=== PATIENT | female | born 1985 | race Caucasian/White ===

== ENCOUNTER → 2019-06-16 08:40 | Outpatient (BNVA) | payer MEDICAID, SELFPAY | PROVIDERS: PCP Family Medicine; Visit Provider Obstetrics & Gynecology | DX: N89.8 Other specified noninflammatory disorders of vagina (principal); R10.2 Pelvic and perineal pain; N93.0 Postcoital and contact bleeding; B97.7 Papillomavirus as the cause of diseases classified elsewhere; R87.613 High grade squamous intraepithelial lesion on cytologic smear of cervix (HGSIL); N93.9 Abnormal uterine and vaginal bleeding, unspecified | CPT/HCPCS: 83001; 84146; 84443; 84703; 87491; 87591; 87661 ==

== ENCOUNTER → 2019-06-19 15:18 | Outpatient (BNVA) | payer MEDICAID, SELFPAY | PROVIDERS: PCP Family Medicine; Visit Provider Obstetrics & Gynecology | DX: D25.0 Submucous leiomyoma of uterus (principal); N93.9 Abnormal uterine and vaginal bleeding, unspecified; N93.0 Postcoital and contact bleeding; R10.2 Pelvic and perineal pain; B97.7 Papillomavirus as the cause of diseases classified elsewhere; R87.613 High grade squamous intraepithelial lesion on cytologic smear of cervix (HGSIL) | CPT/HCPCS: 76830 ==

== ENCOUNTER → 2019-07-07 08:08 | Outpatient (BNVA) | payer MEDICAID, SELFPAY | PROVIDERS: PCP Family Medicine; Visit Provider Obstetrics & Gynecology | DX: R87.613 High grade squamous intraepithelial lesion on cytologic smear of cervix (HGSIL) (principal) | CPT/HCPCS: 88305 ==

== ENCOUNTER 2019-09-13 07:10 | Day surgery (SDC) | payer MEDICAID, SELFPAY ==
[2019-09-11 12:54] VITALS: BMI 35.9
[2019-09-13 07:28] VITALS: BP 132/88; PULSE 97; RESP 18; TEMP 36.7; O2SAT 96
[2019-09-13] MEDS: sodium chloride 0.9% 1,000 ML 30 ML IV (07:34)
[2019-09-13 07:38] LABS: OR HCG Qualitative Urine Negative (Negative)
[2019-09-13 07:41] LABS: Basophils # 0.1 10^3/uL (0.0-0.1); Basophils % 0.6 %; Eosinophils # 0.5 10^3/uL (0.0-0.8); Eosinophils % 5.7 %; Hematocrit 42.5 % (37.0-47.0); Hemoglobin 13.8 g/dL (11.5-15.3); Mean Corpuscular HGB Conc 32.5 g/dL (30.0-36.0); Mean Corpuscular Hemoglobin 28.7 pg (28.0-34.0); Mean Corpuscular Volume 88.4 fL (81-99); Monocytes # 0.6 10^3/uL (0.2-0.9); Monocytes % 7.8 %; Neutrophils # 4.8 10^3/uL (1.8-7.7); Neutrophils % 60.6 %; Nucleated Red Blood Cells % 0 %; Platelet Count 261 10^3/cmm (130-400); Red Blood Count 4.81 10^6/uL (4.1-5.3); Red Cell Distribution Width 12.3 % (12.1-15.1); White Blood Count 7.9 10^3/uL (4.0-10.0)
[2019-09-13 07:56] LABS: Blood Urea Nitrogen 16 mg/dL (6-20); Calcium 9.5 mg/dL (8.5-10.5); Carbon Dioxide 22 mmol/L (22-29); Chloride 104 mmol/L (98-107); Glomerular Filtration Rate 82.6 mL/min (90-130); Glucose 88 mg/dL (65-115); Osmolality Calculated 276 mOsm/kg (285-295); Sodium 135 mmol/L (136-145)
--- NOTE | 2019-09-13 08:07 | W.PM.OPSUD ---
Surgery/Procedure H&P Update DATE OF PROCEDURE: September 13, 2019 DATE H&P PERFORMED: 09/11/19 H&P UPDATE INFORMATION: I have reviewed H&P completed within last 30 days and I have examined patient prior to procedure PREOP DIAGNOSIS: Abnormal Pap smear, abnormal colposcopy ABDULAZIZ-2?3 PLANNED PROCEDURE: Operation Date: 09/13/19 08:05 Proposed Procedures p Cold Knife Cone Biopsy 20543/D06.9(Not Applicable) - Tyson Wiseman MD
--- NOTE | 2019-09-13 08:10 | ANES.PREANE2 ---
Pre-Anesthetic Assessment Pre-Anesthetic Assessment: Height/Weight: Height 1.78 m Weight 113.398 kg Temp Pulse Resp BP Pulse Ox 98.1 F 97 18 132/88 96 09/13/19 07:28 09/13/19 07:28 09/13/19 07:28 09/13/19 07:28 09/13/19 07:28 Preop Diagnosis: Abnormal Pap smear, abnormal colposcopy ABDULAZIZ-2?3 Proposed Procedure: Operation Date: 09/13/19 08:05 Proposed Procedures p Cold Knife Cone Biopsy 44670/D06.9(Not Applicable) - Tyson Wiseman MD Familial anesthetic complications: denies Was Beta Nathanael taken within 24 hours: N/A Last intake: Intake Last Liquid Date 09/12/19 Last Liquid Time 23:30 Last Solid Date 09/12/19 Last Solid Time 19:30 Social: Social History: No alcohol and No tobacco Exam: Pre-Anes Outpt Exam: alert, oriented x 3, clear to auscultation bilaterally and regular rate & rhythm Airway: Submandibular: WNL Cervical ROM: WNL MP: 2 History/ROS: No significant history except as noted Pulmonary: Pulmonary: None reported CV/HEM: CV/HEM: None reported : : None reported Hepatic: Hepatic: None reported GI: GI: None reported Metabolic: Metabolic: None reported Musc/skel: Musc/skel: None reported Neuropsych: Neuropsych: None reported Anesthetic Plan: ASA status: 1 Anesthesia: Anesthesia Evaluation and MAC Risk of > 500 ml blood loss (7ml/kg in children): No Meds/Allergies Current Medications: Current Medications Generic Name Dose Route Start Last Admin Trade Name Freq PRN Reason Stop Dose Admin Sodium Chloride 1,000 mls @ 30 ml s/hr 09/13/19 07:15 09/13/19 07:34 Sodium Chloride 0.9% IV 09/14/19 07:14 30 mls/hr .Q24H MILLIE Administration PFSH Anesthesia PFSH: Medical History HGSIL (high grade squamous intraepithelial lesion) on Pap smear of 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 Family History Family/Other Ovarian cancer paternal aunt Social History (Updated 09/11/19 @ 08:18 by Selene Ortiz RN) Smoking and tobacco status: never smoked Alcohol intake: never Female Reproductive History: Date of last menstrual period: 08/14/19 Data Anesthesia CBC & Chem 7: 09/13/19 07:20 09/13/19 07:20 Other Labs: Laboratory Results - last 48 hr 09/13/19 09/13/19 09/13/19 07:11 07:20 07:20 WBC 7.9 RBC 4.81 Hgb 13.8 Hct 42.5 MCV 88.4 MCH 28.7 MCHC 32.5 RDW 12.3 Plt Count 261 MPV 10.0 Neut % (Auto) 60.6 Lymph % (Auto) 25.0 [place] % (Auto) 7.8 Eos % (Auto) 5.7 Baso % (Auto) 0.6 Neut # (Auto) 4.8 Lymph # (Auto) 2.0 [place] # (Auto) 0.6 Eos # (Auto) 0.5 Baso # (Auto) 0.1 Nucleated RBC % (auto) 0 Nucleated RBCs # 0.0 Sodium 135 L Potassium 4.0 Chloride 104 Carbon Dioxide 22 Anion Gap 13.0 BUN 16 Creatinine 0.8 GFR Calculation 82.6 L Glucose 88 Calculated Osmolality 276 L Calcium 9.5 Urine HCG, Qual Negative Cardiac Studies: No Data to Display
[2019-09-13 08:21] LABS: Urine Appearance SL Hazy (CLEAR); Urine Color Yellow (Yellow)
[2019-09-13 08:22] LABS: Add Urine Culture? No; Add Urine Microscopic? YES; Bacteria Urine 1+; Bilirubin Urine Neg (NEGATIVE); Blood Urine 3+ (Negative); Glucose Urine UA Norm (Normal); Ketones Urine Negative (Negative); Leukocyte Esterase Urine 1+ (Negative); Nitrate Urine Negative (Negative); Protein Urine Neg (Negative); Specific Gravity, Urine 1.015 (1.005-1.030); Urobilinogen Urine Norm (Negative); pH Urine 5 (5-7)
--- NOTE | 2019-09-13 09:24 | P.OP_ITS ---
Operative Report Date of procedure: September 13, 2019 Pre-op Diagnosis: Abnormal Pap smear, abnormal colposcopy ABDULAZIZ-2?3 Post-op diagnosis: same Post-op Findings: cervix ectropion Procedure Done: cervical cone biopsy via LEEP Specimens removed/disposition: cervical cone biopsy Surgeon: Tyson Wiseman Anesthesia: MAC Estimated blood loss (mL): 10 IV fluids (mL): 700 Complications: none Findings: eroded cervix Condition: stable Disposition: PACU Brief History: 33-year-old female with an abnormal Pap smear and colposcopy with ABDULAZIZ-3 Procedure: After informed consent, the patient was taken to the operating room w here general anesthesia was administered without difficulty. After administration of general anesthesia, the patient was placed in the dorsal lithotomy position, and prepped and draped in the usual sterile fashion. A time-out procedure was performed. The patient was examined under anesthesia and found to have a normal uterus with normal adnexa. A weighted speculum was then placed in the patient's vagina and the anterior lip of the cervix grasped with the singed toothed tenaculum A uterine sound was then advanced into the cervix to determine its direction and length. The decending cervical branchs of the uterine arteries were ligated with 2-0 Vicryl bilaterally at the level of the internal os. Attention was then turned to the cervix where it was stain with Lugol?s solution to hightlight the lesion. The paracervical area was then circumferentially infiltrated using Lidocaine 1% with epinephrine. A Big Fish Cone Biopsy Excisor was used to cut the cone biopsy in circular fashion and following removal of the specimen a suture was placed at the 12 o?clock location and fixed in formalin. Bleeding was minimal. The patient tolerated the procedure well, sponge, lap and needle counts were cor rect times two She was taken to the recovery room in good condition.
[2019-09-13 09:30] VITALS: BP 116/92; PULSE 100; RESP 18; TEMP 36.9; O2SAT 97
[2019-09-13 09:46] VITALS: BP 152/95; PULSE 100; RESP 18; O2SAT 98
== END 2019-09-13 10:13 | disposition home or self-care (01) ==
PROVIDERS: Visit Provider Obstetrics & Gynecology
PROC: 0UB97ZZ Excision of Uterus, Via Natural or Artificial Opening (ICD-10-PCS; CPT 57520; principal; 2019-09-13 08:00)
DX: D06.9 Carcinoma in situ of cervix, unspecified (principal)
CPT/HCPCS: 57522; 12345; 36415; 80048; 81001; 81025; 84703; 85025; 86850; 86900; 88307; J0690; J1885; J2001; J2250; J2704; J3010; J7030

== ENCOUNTER 2020-03-01 05:45 | Outpatient (RCR) | payer MEDICAID, SELFPAY ==
[2020-02-12 15:23] LABS: Basophils # 0.1 10^3/uL (0.0-0.1); Basophils % 0.5 %; Eosinophils # 0.5 10^3/uL (0.0-0.8); Eosinophils % 5.5 %; Hematocrit 38.5 % (37.0-47.0); Hemoglobin 11.8 g/dL (11.5-15.3); Lymphocytes # 1.9 10^3/uL (0.8-4.8); Lymphocytes % 20.8 %; Mean Corpuscular HGB Conc 30.6 g/dL (30.0-36.0); Mean Corpuscular Hemoglobin 26.1 pg (28.0-34.0); Mean Corpuscular Volume 85.2 fL (81-99); Monocytes # 0.5 10^3/uL (0.2-0.9); Monocytes % 5.9 %; Neutrophils # 6.13 10^3/uL (1.8-7.7); Nucleated Red Blood Cells % 0 %; Platelet Count 319 10^3/cmm (130-400); Red Blood Count 4.52 10^6/uL (4.1-5.3); Red Cell Distribution Width 15.1 % (12.1-15.1); White Blood Count 9.2 10^3/uL (4.0-10.0)
[2020-02-12 15:51] LABS: Alanine Aminotransferase 14 U/L (0-33); Albumin Level 4.4 g/dL (3.5-5.2); Alkaline Phosphatase 77 IU/L (35-105); Aspartate Amino Transferase 13 U/L (0-32); Blood Urea Nitrogen 15 mg/dL (6-20); Calcium 8.9 mg/dL (8.5-10.5); Carbon Dioxide 24 mmol/L (22-29); Chloride 105 mmol/L (98-107); Globulin 2.7 g/dL (1.3-4.6); Glomerular Filtration Rate 71.7 mL/min (90-130); Glucose 96 mg/dL (65-115); Osmolality Calculated 289 mOsm/kg (285-295); Sodium 139 mmol/L (136-145); Total Bilirubin 0.2 mg/dL (0.15-1.2); Total Protein 7.1 g/dL (6.6-8.7)
--- NOTE | 2020-02-13 | CT_ITS ---
Radiation Therapy Planning CT images; total exam DLP: 1409.67 mGy-cm MTDD
--- NOTE | 2020-02-14 17:59 | ONC CON_ITS ---
Dr. Berger New Patient Note Patient: Ashleigh Mitchell Unit #: [id number]: 1985 Dicatated By: Kaylyn Berger M.D.Date of Visit: Feb 12, 2020 Onc MED New Patient/Consult Referring Physician: Dr. Ben Ellison M.D. History of Present Illness: Ms. Ashleigh Mitchell, is a 34-year-old female who was found to have abnormal Pap smear in August 2019 and underwent conization by Dr. Wiseman which confirmed invasive cervical cancer, patient was referred to Dr. Ellison in [place] and underwent CT scan of chest abdomen pelvis on November 08, 2019 which showed solitary 2 mm fissural nodule in the left lung. Otherwise no abnormality 9 mm arterial phase hyperenhancing lesion in the liver lateral hepatic segment. 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 Patient says she has history of abnormal Pap smear in but was noncompliant as far as follow-up is concerned. She has history of anxiety and restlessness as well family history concern patient had a paternal aunt who had cervical cancer. Patient denies any complaints, no fever chills, no nausea or vomiting, no diarrhea constipation but somewhat restless and anxious, patient has been taking Ativan 0.5 mg every 8 hour but not helping her much recently. Otherwise no vaginal bleeding or discharge, no pelvic pain,Patient denies smoking but occasional alcohol use. Past Medical History: Ms. Mitchell's medical history is unremarkable. Past Surgical History: Ms. Basss surgical/procedural history consists of colposcopy, hysterectomy/bilateral salpingectomy-oophorectomy, and tubal ligation in 2006. Medications: ALPRAZolam 1 Tablet (of 0.5 mg) Tablet Oral t.i.d. Allergies: No Known Allergies. Social History: Ms. Mitchell is single. Ms. Mitchell has never smoked. She is a former drinker. She has indicated exposure to the following products: marijuana. Family History: Ms. Mitchell's mother is alive. Ms. Mitchell's father is alive. Ms. Mitchell has 1 paternal aunt who is : ovarian cancer. Review Of Symptoms: Constitutional - Appetite is good and weight is stable. No fever, night sweats, or hot flashes. Energy level is poor, ENMT - No sinus congestion/drainage. No mouth sores. No sore throat or difficulty swallowing, Hematologic/Lymphatic - No abnormal bruising or bleeding, Respiratory - No shortness of breath. No cough. No pleuritic pain or hemoptysis, Cardiovascular - No angina pain. No palpitations, Gastrointestinal - No nausea or vomiting. Positive for heartburn and acid reflux. No diarrhea or constipation. No blood in the stool or black stools, Genitourinary (F) - No dysuria or hematuria. No urinary frequency. No urgency or incontinence, Musculoskeletal - No joint or bone pain, Neurologic - No headache or dizziness. No numbness or tingling. No other focal neurologic symptoms, Psychiatric - Positive for anxiety, depression and insomnia. Vital Signs: Performed on Feb 12, 2020 13:38: 70.50 in, 217.8 lbs, 98.6 F, 76, 20, 126/73 mm(hg), 97 %, 0, and Performed on Feb 12, 2020 13:38: 30.81 kg/m2 (HIGH). Performance Status: 0 - Fully active, able to carry on all predisease activities without restrictions. (ECOG) Physical Examination: ENMT - No mouth sores, no thrush, no jaundice, Respiratory - Lungs are clear to auscultation, Cardiovascular - Regular rate and rhythm of heart, Abdomen - Soft, bowel sounds present, Extremities - No visible edema. Lab/Imaging: Most recent lab results are not available for this patient. 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 Perineural invasion seen, lymphovascular invasion also identified. Pathological stage stage T1b1, N0, MX (high risk) Anxiety disorder Plan: Discussed with patient regarding her disease status and treatment options, being young and with a high risk e.g. lymphovascular/perineural invasion seen, adenosquamous early stage cervical carcinoma, patient is a candidate for adjuvant therapy with radiation and concurrent chemotherapy although as per NCCN guideline as a category 2A recommendation. Patient was offered evaluation for clinical trial at tertiary care but patient opted for adjuvant therapy here in [place], all the risk versus benefits associated with systemic chemotherapy with cisplatin including but not limited to, bone marrow suppression, nausea vomiting, hair loss, ear and kidney toxicity, were discussed further teaching will done by chemotherapy nurse, planning to consider weekly cisplatin 25-30 mg/m??? concurrent with radiation therapy, will also obtain PICC line to facilitate chemotherapy. Will obtain approval from her insurance prior to treatment and also give her prescription for Ativan 1 mg p.o. 6 to 8-hour as needed for anxiety/restlessness.Patient return to clinic 1 week after initiation of chemoradiation with CBC CMP Signed By: Kaylyn Berger M.D. <<Signature on File>>
--- NOTE | 2020-02-15 08:17 | N.ONRAD NP_ITS ---
Radiation Oncology New Patient Visit Patient: Ashleigh Mitchell MR#: [id number] : 1985> Age: 34> Sex: Female> Dictated by: Dr. Jai Randolph Date of Service: 02/12/2020 Referring Physician(s) : Dr. 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 Ellison 12/12/2019). Pathology revealed questionable lymphovascular invasion, positive perineural invasion, deep stromal invasion, a tumor size of 4.1 cm, and a negative but close circumferential margin (less than 1 mm). Radiotherapy to date: Summary > No prior radiation therapy. Chief Complaint / History of Present Illness: The patient is a 34-year-old G2 para 2 female with an abnormal Pap smear who underwent cone biopsy (Dr. Wiseman 09/13/2019) which revealed invasive moderate to poorly differentiated squamous of carcinoma with extension to deep and endocervical inked margins. No definite vascular invasion was identified. The patient was referred to Dr. Sampson morales and on 11/21/2019 and exam under anesthesia with subsequent cervical biopsy and endocervical curettage. Pathology revealed adenosquamous carcinoma. Clinically, the tumor was described as a 4.1 cm firm, mobile, nodular appearing tumor on the left side of the cervix at the endocervical margin with no corresponding parametrial disease (FIGO stage 1B1). A CT of the chest abdomen pelvis (11/13/2019) revealed a 2 mm fissural nodule on the left lung (series 301, image 31), a 9 mm hyperenhancing lesion within the lateral hepatic segment anteriorly on the arterial phase only (series 302, image 52) which was considered to be a ???transient phenomenon or a small hemangioma, less likely metastatic disease, . . . MRI suggested???. Per medical report, Dr. Ellison???s office attempted to get a PET/CT scan and MRI, but insurance denied the request. Thus, he decided to proceed with surgery. On 12/12/2019 she underwent class III radical total abdominal hysterectomy, bilateral salpingoectomy, suprapubic catheter insertion, bilateral ovarian transposition, and omental J flap to isolate small bowel from pelvis. Pathology revealed grade 2 adenosquamous carcinoma with deep stromal invasion (at least 12 mm) with positive perineural invasion, possible lymphovascular invasion, and postoperative margins negative but close within 1 mm (circumferential margin). The ectocervical margin and vaginal cuff margin were widely negative. All 7 sampled lymph nodes were negative for disease, and thus pathologic staging was pT1b1 N0 M0. Patient was also recommended to medical oncology for concurrent chemotherapy. In consultation today, the patient reports no vaginal discharge, no dyspareunia, no abdominal pain, and no nausea/vomiting. Current Medications: Allergies: No Known Allergies Medical History: No history of collagen vascular disease. No previous radiation therapy. Surgical History: Colposcopy and hysterectomy/bilateral salpingectomy-oophorectomy. Family History: Father is alive. Mother is alive. Paternal Grandmother has experienced Bone Cancer. Paternal Aunt is having experienced Ovarian Cancer. Social History: Last screened on 02/12/2020 - Never smoked. Last screened on 02/12/2020 - Past drinker. Patient indicated use of the following products: marijuana. Current Complaints / Review of Systems: ROS Constitutional - Appetite is good and weight is stable. No fever, night sweats, or hot flashes. Energy level is poor. ROS ENMT - No sinus congestion/drainage. No mouth sores. No sore throat or difficulty swallowing. ROS Hematologic/Lymphatic - No abnormal bruising or bleeding. ROS Respiratory - No shortness of breath. No cough. No pleuritic pain or hemoptysis. ROS Cardiovascular - No angina pain. No palpitations. ROS Gastrointestinal - No nausea or vomiting. Positive for heartburn and acid reflux. No diarrhea or constipation. No blood in the stool or black stools. ROS Genitourinary (F) - No dysuria or hematuria. No urinary frequency. No urgency or incontinence. ROS Musculoskeletal - No joint or bone pain. ROS Neurologic - No headache or dizziness. No numbness or tingling. No other focal neurologic symptoms. ROS Psychiatric - Positive for anxiety, depression and insomnia.. Vital Signs: Performed on 02/12/2020 1:38 PM BMI - 30.81 kg/m2 (high), Height - 70.50 in, Weight - 217.8 lbs, Temperature - 98.6 f, Pulse - 76, Respiration - 20, O2 Sat - 97 %, Pain - 0 and BP - 126/ 73 mm(hg). Physical Exam: GENERAL:??? The patient is alert, and in no acute distress. HEENT:??? Head is normocephalic. Face is symmetric. External ocular movements are intact. Sclera and conjunctivae are non erythematous. NECK:??? Trachea is midline.??? Thyroid is not enlarged by palpation.??? LYMPH NODES:??? There is no cervical or supraclavicular adenopathy bilaterally. LUNGS:??? Clear to auscultation bilaterally. Respiratory movement is unlabored. HEART:??? Regular rate and rhythm. EXTREMITIES:??? No deformities. NEUROLOGIC:??? Gait and station are normal.??? The patient is well coordinated and strength is equal bilaterally. PLANT PRODUCTION MANAGER:??? Cranial nerves II-XII are intact and without focal deficits.??? Psych: Affect is normal. Skin: Cursory review of the skin reveals no obvious lesions concerning for malignancy. Pelvic examination revealed a patent vaginal vault, a well-healed vaginal cuff, and no mucosal irregularity concerning for malignancy within the vaginal vault. The anal sphincter had normal tone, rectovaginal septum was without palpable irregularity or nodularity. There were no clinical findings suggestive of parametrial disease. 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 Ellison 12/12/2019). Pathology revealed questionable lymphovascular invasion, positive perineural invasion, deep stromal invasion, and a negative but close circumferential margin (less than 1 mm). Whether the patient has lymphovascular invasion or not, this patient qualifies for external pelvic radiation in accordance to Sedlis criteria. We discussed radiation logistics, prognosis with adjuvant treatment (i.e. 88% recurrence free survival rate), treatment alternatives, and potential acute/late side effects associated with radiation therapy. Since the close margin was a circumferential margin and not at the vaginal cuff I discussed this case with Dr. Berger who intends to offer concurrent weekly low-dose cisplatin. Signed by: 02/15/2020 8:15:52 AM <<Signature on File>> Time spent with patient: CPT Code: CPT Code:
[2020-02-26] MEDS: sodium chloride 0.9% 250 ML 75 ML IV (08:46)
[2020-02-26 09:00] LABS: Basophils % 0.4 %; Eosinophils # 0.4 10^3/uL (0.0-0.8); Eosinophils % 6.5 %; Hematocrit 41.6 % (37.0-47.0); Hemoglobin 12.7 g/dL (11.5-15.3); Lymphocytes % 18.9 %; Mean Corpuscular HGB Conc 30.5 g/dL (30.0-36.0); Mean Corpuscular Hemoglobin 25.7 pg (28.0-34.0); Mean Platelet Volume 10.1 fL (7.4-10.4); Monocytes # 0.4 10^3/uL (0.2-0.9); Monocytes % 7.3 %; Neutrophils # 3.68 10^3/uL (1.8-7.7); Neutrophils % 66.7 %; Nucleated Red Blood Cells % 0 %; Platelet Count 291 10^3/cmm (130-400); Red Blood Count 4.95 10^6/uL (4.1-5.3); Red Cell Distribution Width 15.2 % (12.1-15.1); White Blood Count 5.5 10^3/uL (4.0-10.0)
[2020-02-26 09:22] LABS: Alanine Aminotransferase 20 U/L (0-33); Albumin Level 4.3 g/dL (3.5-5.2); Alkaline Phosphatase 81 IU/L (35-105); Anion Gap 14.1 (5-19); Aspartate Amino Transferase 16 U/L (0-32); Blood Urea Nitrogen 12 mg/dL (6-20); Calcium 8.8 mg/dL (8.5-10.5); Carbon Dioxide 23 mmol/L (22-29); Chloride 106 mmol/L (98-107); Globulin 2.9 g/dL (1.3-4.6); Glomerular Filtration Rate 95.8 mL/min (90-130); Glucose 99 mg/dL (65-115); Osmolality Calculated 288 mOsm/kg (285-295); Potassium 4.1 mmol/L (3.5-5.1); Sodium 139 mmol/L (136-145); Total Bilirubin 0.2 mg/dL (0.15-1.2); Total Protein 7.2 g/dL (6.6-8.7)
[2020-02-26] MEDS: FUROsemide 10 mg/mL SDV 2mL 20 MG IV (13:08)
[2020-02-26] MEDS: potassium chloride 20 MEQ in sodium chloride 0.9% 500 ML 250 MEQ IV (13:10)
--- NOTE | 2020-02-28 19:14 | ONCRAD TMN_ITS ---
Radiation Oncology Weekly Treatment Management Patient: Ashleigh Mitchell MR#: [id number] : 1985 Age: 34 Sex: Female Dictated by: Dr. Jai Randolph Date of Service: 02/27/2020 Referring Physician(s) : Dr. 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 Ellison 12/12/2019). Pathology revealed questionable lymphovascular invasion, positive perineural invasion, deep stromal invasion, a tumor size of 4.1 cm, and a negative but close circumferential margin (less than 1 mm). Planned treatment: Concurrent chemoradiation therapy consisting of low-dose weekly cisplatin and an aggregate dose of 50.4 Gy in 28 fractions. Radiotherapy to date: Course: Pelvis 5040cGy, Treatment Site: Pelvis 28FX, Ref. ID: [id number], Energy: 15X, Dose/Fx (cGy): 180, #Fx: , Dose Correction (cGy): 0, Total Dose (cGy): 360, Start Date: 02/26/2020, Elapsed Days: 1 Reason for visit: The patient is being seen today as part of their regularly scheduled weekly on treatment visits to assess for acute toxicities from radiotherapy. Interim History: The patient reports no acute side effects from treatment thus far. Current Medications: Aloxi, aLPRAZolam, aLPRAZolam, cISplatin, dexamethasone Sodium Phosphate, emend, furosemide, lORazepam, magnesium Sulfate, potassium Chloride, prochlorperazine Maleate. Allergies: No Known Allergies Current Complaints/Review of Systems: Constitutional - Denies lack of appetite, fatigue, fever, night sweats and change in weight. Gastrointestinal - Complains of nausea. Denies abdominal pain, constipation, diarrhea, heartburn / dyspepsia, melena / GI bleeding and vomiting. Genitourinary (F) - Complains of nocturia gets up about 1 to 2 times per night. Denies dysuria, frequency, hematuria, urgency, vaginal discharge / bleeding and vaginal spotting. Vital Signs: Performed on 02/27/2020 10:31 AM BMI - 31.29 kg/m2 (high), Height - 70.50 in, Weight - 221.2 lbs, Temperature - 98.4 f, Pulse - 65, Respiration - 16, O2 Sat - 98 %, Pain - 5 and BP - 126/ 80 mm(hg). Physical Exam: Appears stable, no skin erythema or desquamation. Performance Status: 0 - Fully active, able to carry on all predisease activities without restrictions. (ECOG) Lab: None pending in Radiation Oncology. Test performed on 02/26/2020 8:46 AM MCH - 25.7 pg (low), RDW - 15.2 % (high) and Cr Clearance (Est) - 176.6100 ml/min (high). Imaging: Radiation therapy imaging related to accurate target localization (i.e. KV, MV and CBCT) was reviewed. Appropriate changes, if any, were made to ensure treatment accuracy. Plan: The patient is tolerating therapy reasonably well. Radiotherapy will continue as planned. CPT: 81819 Signed by: Dr. Jai Randolph 02/28/2020 7:13:03 PM
[2020-03-01 10:54] LABS: Basophils % 0.4 %; Eosinophils # 0.2 10^3/uL (0.0-0.8); Eosinophils % 3.1 %; Hematocrit 42.1 % (37.0-47.0); Hemoglobin 12.8 g/dL (11.5-15.3); Lymphocytes # 0.9 10^3/uL (0.8-4.8); Lymphocytes % 17.7 %; Mean Corpuscular HGB Conc 30.4 g/dL (30.0-36.0); Mean Corpuscular Hemoglobin 25.6 pg (28.0-34.0); Mean Corpuscular Volume 84.2 fL (81-99); Mean Platelet Volume 10.1 fL (7.4-10.4); Monocytes # 0.3 10^3/uL (0.2-0.9); Monocytes % 6.4 %; Neutrophils % 72.2 %; Nucleated Red Blood Cells % 0 %; Platelet Count 300 10^3/cmm (130-400); Red Cell Distribution Width 15.2 % (12.1-15.1); White Blood Count 5.1 10^3/uL (4.0-10.0)
[2020-03-01 11:18] LABS: Alanine Aminotransferase 16 U/L (0-33); Albumin Level 4.3 g/dL (3.5-5.2); Alkaline Phosphatase 77 IU/L (35-105); Anion Gap 11.5 (5-19); Aspartate Amino Transferase 13 U/L (0-32); Blood Urea Nitrogen 14 mg/dL (6-20); Calcium 9.2 mg/dL (8.5-10.5); Carbon Dioxide 25 mmol/L (22-29); Chloride 101 mmol/L (98-107); Glomerular Filtration Rate 95.8 mL/min (90-130); Glucose 92 mg/dL (65-115); Osmolality Calculated 276 mOsm/kg (285-295); Potassium 4.5 mmol/L (3.5-5.1); Sodium 133 mmol/L (136-145); Total Bilirubin 0.3 mg/dL (0.15-1.2); Total Protein 7.3 g/dL (6.6-8.7)
== END 2020-03-02 23:59 | disposition home or self-care (01) ==
LOC: ONCMED 05:45
PROVIDERS: Internal Medicine Hematology & Oncology; Absent Provider Radiology Radiation Oncology; Visit Provider Radiology Radiation Oncology
DX: Z51.0 Encounter for antineoplastic radiation therapy (principal); Z51.11 Encounter for antineoplastic chemotherapy; C53.9 Malignant neoplasm of cervix uteri, unspecified; F12.90 Cannabis use, unspecified, uncomplicated; F41.9 Anxiety disorder, unspecified; Z90.710 Acquired absence of both cervix and uterus; Z90.722 Acquired absence of ovaries, bilateral
CPT/HCPCS: 36415; 77300; 77301; 77334; 77338; 77386; 80053; 85025; 96366; 96367; 96375; 96413; 99203; 99215; J1100; J1453; J1940; J2469; J3475; J3480; J7030; J7040; J7050; J9060

== ENCOUNTER 2020-04-01 05:11 | Outpatient (RCR) | payer MEDICAID, SELFPAY ==
[2020-03-05] MEDS: sodium chloride 0.9% 250 ML 75 ML IV ×2 (09:34)
[2020-03-05 09:51] LABS: Basophils % 0.7 %; Eosinophils # 0.2 10^3/uL (0.0-0.8); Hematocrit 39.3 % (37.0-47.0); Hemoglobin 12.3 g/dL (11.5-15.3); Lymphocytes # 0.6 10^3/uL (0.8-4.8); Lymphocytes % 13.2 %; Mean Corpuscular HGB Conc 31.3 g/dL (30.0-36.0); Mean Corpuscular Hemoglobin 25.8 pg (28.0-34.0); Mean Corpuscular Volume 82.6 fL (81-99); Mean Platelet Volume 9.9 fL (7.4-10.4); Monocytes # 0.3 10^3/uL (0.2-0.9); Monocytes % 6.4 %; Neutrophils # 3.41 10^3/uL (1.8-7.7); Nucleated Red Blood Cells % 0 %; Platelet Count 261 10^3/cmm (130-400); Red Blood Count 4.76 10^6/uL (4.1-5.3); Red Cell Distribution Width 15.3 % (12.1-15.1); White Blood Count 4.5 10^3/uL (4.0-10.0)
[2020-03-05 10:18] LABS: Alanine Aminotransferase 14 U/L (0-33); Albumin Level 4.2 g/dL (3.5-5.2); Alkaline Phosphatase 78 IU/L (35-105); Anion Gap 14.1 (5-19); Aspartate Amino Transferase 13 U/L (0-32); Blood Urea Nitrogen 10 mg/dL (6-20); Calcium 8.9 mg/dL (8.5-10.5); Carbon Dioxide 22 mmol/L (22-29); Chloride 106 mmol/L (98-107); Globulin 2.8 g/dL (1.3-4.6); Glomerular Filtration Rate 114.4 mL/min (90-130); Glucose 93 mg/dL (65-115); Osmolality Calculated 285 mOsm/kg (285-295); Potassium 4.1 mmol/L (3.5-5.1); Sodium 138 mmol/L (136-145); Total Bilirubin 0.2 mg/dL (0.15-1.2)
[2020-03-05] MEDS: FUROsemide 10 mg/mL SDV 2mL 20 MG IV (13:36)
[2020-03-05] MEDS: potassium chloride 20 MEQ in sodium chloride 0.9% 500 ML 250 MEQ IV (13:38)
[2020-03-05] MEDS: potassium chloride ER 10 mEq Tablet 20 MEQ PO (14:41)
--- NOTE | 2020-03-05 14:53 | ONCRAD TMN_ITS ---
Radiation Oncology Weekly Treatment Management Patient: Stephen Sotelo MR#: [id number] : 1985 Age: 34 Sex: Female Dictated by: Dr. Jai Randolph Date of Service: 03/05/2020 Referring Physician(s) : Dr. 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 Ellison 12/12/2019). Pathology revealed questionable lymphovascular invasion, positive perineural invasion, deep stromal invasion, a tumor size of 4.1 cm, and a negative but close circumferential margin (less than 1 mm). Planned treatment: Concurrent chemoradiation therapy consisting of low-dose weekly cisplatin and an aggregate dose of 50.4 Gy in 28 fractions. Radiotherapy to date: Course: Pelvis 5040cGy, Treatment Site: Pelvis 28FX, Ref. ID: [id number], Energy: 15X, Dose/Fx (cGy): 180, #Fx: , Dose Correction (cGy): 0, Total Dose (cGy): 1,080, Start Date: 02/26/2020, Elapsed Days: 8 Reason for visit: The patient is being seen today as part of their regularly scheduled weekly on treatment visits to assess for acute toxicities from radiotherapy. Interim History: The patient reports of fatigue and nausea which is controlled with existing antiemetic medication. She reports no dysuria, no diarrhea, and no abdominal pain. Current Medications: Aloxi, aLPRAZolam, aLPRAZolam, cISplatin, dexamethasone Sodium Phosphate, emend, furosemide, lORazepam, magnesium Sulfate, oxyCODONE-Acetaminophen, potassium Chloride, prochlorperazine Maleate, prochlorperazine Maleate. Allergies: No Known Allergies Vital Signs: Performed on 03/05/2020 8:56 AM Height - 70.50 in, Weight - 216.6 lbs (low), BSA - 2.17 sq.m, BMI - 30.64 (high), Temperature - 98.1 f (low), Pulse - 76 /min, Respiration - 20 /min, O2 Sat - 98 %, Pain - 6 and BP - 135/ 79 mm(hg). Physical Exam: Appears stable, no skin erythema or desquamation. Lungs are clear to auscultation bilaterally. Performance Status: 0 - Fully active, able to carry on all predisease activities without restrictions. (ECOG) Lab: None pending in Radiation Oncology. Test performed on 03/01/2020 10:20 AM MCH - 25.6 pg (low), RDW - 15.2 % (high), Sodium - 133 mmol/l (low), Cr Clearance (Est) - 176.6100 ml/min (high) and Osmolality - Calculated - 276 mosm/kg (low). Imaging: Radiation therapy imaging related to accurate target localization (i.e. KV, MV and CBCT) was reviewed. Appropriate changes, if any, were made to ensure treatment accuracy. Plan: The patient is tolerating therapy reasonably well. Radiotherapy will continue as planned. CPT: 68253 Signed by: Dr. Jai Randolph 03/05/2020 2:51:40 PM
--- NOTE | 2020-03-05 16:38 | ONC FU_ITS ---
Dr. Berger follow up note Patient: Ashleigh Mitchell Unit #: [id number]: 1985 Dicatated By: Kaylyn Berger M.D.Date of Visit:Mar 05, 2020 Onc Med Follow-up/Prog Note History of Present Illness: Ms. Ashleigh Mitchell, is a 34-year-old female who was found to have abnormal Pap smear in August 2019 and underwent conization by Dr. Wiseman which confirmed invasive cervical cancer, patient was referred to Dr. Ellison in [place] and underwent CT scan of chest abdomen pelvis on November 08, 2019 which showed solitary 2 mm fissural nodule in the left lung. Otherwise no abnormality 9 mm arterial phase hyperenhancing lesion in the liver lateral hepatic segment. 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 Patient says she has history of abnormal Pap smear in but was noncompliant as far as follow-up is concerned. She has history of anxiety and restlessness as well family history concern patient had a paternal aunt who had cervical cancer. Started on Adjuvant combined chemoradiation on February 26, 2020 with weekly cisplatin Came for follow-up, denies any specific complaint except off and on lower pelvic/back pain for which in the past she used to take Percocet, since she started radiation therapy, pain is somewhat more bothersome. But no fever chills, no nausea or vomiting, no diarrhea or constipation, no hematuria or burning micturition, no vaginal bleed. Tolerating combined chemoradiation with weekly cisplatin well Medications: ALPRAZolam 1 Tablet (of 0.5 mg) Tablet Oral t.i.d., Prochlorperazine Maleate 1 Tablet (of 10 mg) Oral q 4 hours PRN Allergies: No Known Allergies. Review of Systems: Review of Systems is not available for this patient. Vital Signs: Performed on Mar 05, 2020 12:26 Height - 70.50 in Weight - 216.6 lbs Temperature - 98.1 F Pulse - 76 Respiration - 20 BP - 135/79 mm(hg) O2 Sat - 98 % Pain - 8 Performed on Mar 05, 2020 12:26 BMI - 30.64 kg/m2 (HIGH) Performed on Mar 05, 2020 08:56 Height - 70.50 in Weight - 216.6 lbs (LOW) BSA - 2.17 sq.m BMI - 30.64 (HIGH) Temperature - 98.1 F (LOW) Pulse - 76 /min Respiration - 20 /min BP - 135/79 mm(hg) O2 Sat - 98 % Pain - 6 Performance Status: 0 - Fully active, able to carry on all predisease activities without restrictions. (ECOG) Physical Examination: ENMT - No mouth sores, no thrush, no jaundice, Respiratory - Lungs are clear to auscultation, Cardiovascular - Regular rate and rhythm of heart, Abdomen - Soft, bowel sounds persent, Extremities - No visible edema. Lab/Imaging: Test performed on Mar 01, 2020 10:20 Sodium 133 mmol/L Potassium 4.5 mmol/L Chloride 101 mmol/L CO2 25 mmol/L Anion Gap 11.5 BUN 14 mg/dL Creatinine 0.7 mg/dL Cr Clearance (Est) 176.6100 mL/min eGFR 95.8 mL/min Glucose 92 mg/dL Osmolality - Calculated 276 mOsm/kg Calcium 9.2 mg/dL Protein, Total 7.3 g/dL Albumin 4.3 g/dL Globulin 3.0 g/dL Bilirubin, Total 0.3 mg/dL ALT (SGPT) 16 U/L AST (SGOT) 13 U/L Alkaline Phosphatase 77 IU/L WBC 5.1 10 3/uL RBC 5.00 10 6/uL HGB 12.8 g/dL HCT 42.1 % MCV 84.2 fL MCH 25.6 pg MCHC 30.4 g/dL RDW 15.2 % Platelet Count 300 10 3/cmm MPV 10.1 fL Neutrophils 3.70 10 3/uL Lymphocytes 0.9 10 3/uL Monocytes 0.3 10 3/uL Eosinophils 0.2 10 3/uL Basophils 0.0 10 3/uL Neutrophil % 72.2 % Lymphocyte % 17.7 % Monocyte % 6.4 % Eosinophil % 3.1 % Basophils % 0.4 % NRBC % 0 % Test performed on Feb 26, 2020 00:00 Manual Diff Cancelled via OM: Cancelled in Connected System Impression: 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 Perineural invasion seen, lymphovascular invasion also identified. Pathological stage stage T1b1, N0, MX (high risk) Started on Adjuvant combined chemoradiation therapy on February 26, 2020 with weekly cisplatin Anxiety disorder Plan: Discussed with patient regarding her labs white blood count 4.5 hemoglobin 12.3 hematocrit 39.3 platelets 261,000 CMP within normal limits Clinically, patient doing well, tolerating combined chemoradiation with weekly cisplatin well but with expected side effects. We will proceed with next weekly dose of cisplatin today and then return to clinic in 1 week with CBC CMP, as far as pelvic pain/lower back pain is concerned etiology, is unclear,, in the past, as per patient she used to take Percocet which used to help her. We will give her prescription for Percocet if there is a worsening of pain will consider evaluation otherwise continue with supportive care Signed By: Kaylyn Berger M.D. <<Signature on File>>
[2020-03-14] MEDS: sodium chloride 0.9% 250 ML 75 ML IV (09:25)
[2020-03-14 09:37] LABS: Basophils % 0.3 %; Eosinophils # 0.1 10^3/uL (0.0-0.8); Eosinophils % 2.3 %; Hematocrit 40.8 % (37.0-47.0); Hemoglobin 12.5 g/dL (11.5-15.3); Lymphocytes # 0.4 10^3/uL (0.8-4.8); Lymphocytes % 9.8 %; Mean Corpuscular HGB Conc 30.6 g/dL (30.0-36.0); Mean Corpuscular Hemoglobin 25.6 pg (28.0-34.0); Mean Corpuscular Volume 83.6 fL (81-99); Mean Platelet Volume 9.3 fL (7.4-10.4); Monocytes # 0.3 10^3/uL (0.2-0.9); Neutrophils # 3.22 10^3/uL (1.8-7.7); Neutrophils % 80.3 %; Nucleated Red Blood Cells % 0 %; Platelet Count 179 10^3/cmm (130-400); Red Blood Count 4.88 10^6/uL (4.1-5.3); Red Cell Distribution Width 16.5 % (12.1-15.1)
[2020-03-14 09:58] LABS: Alanine Aminotransferase 13 U/L (0-33); Albumin Level 4.3 g/dL (3.5-5.2); Alkaline Phosphatase 67 IU/L (35-105); Anion Gap 16.1 (5-19); Aspartate Amino Transferase 11 U/L (0-32); Blood Urea Nitrogen 9 mg/dL (6-20); Calcium 8.9 mg/dL (8.5-10.5); Carbon Dioxide 22 mmol/L (22-29); Chloride 104 mmol/L (98-107); Globulin 2.6 g/dL (1.3-4.6); Glomerular Filtration Rate 114.4 mL/min (90-130); Glucose 110 mg/dL (65-115); Osmolality Calculated 285 mOsm/kg (285-295); Potassium 4.1 mmol/L (3.5-5.1); Sodium 138 mmol/L (136-145); Total Bilirubin 0.2 mg/dL (0.15-1.2); Total Protein 6.9 g/dL (6.6-8.7)
--- NOTE | 2020-03-14 11:14 | ONCRAD TMN_ITS ---
Radiation Oncology Weekly Treatment Management Patient: Ashleigh Mitchell MR#: [id number] : 1985 Attending Physician: Steve Cabrera M.D. Date of Service: 03/14/2020 Referring Physician(s): Dr. Ben Ellison Diagnosis: C53.9 - Malignant neoplasm of cervix uteri, unspecified, Diagnosed 02/13/2020 (Active) Treatment Site: Pelvis Fraction #: Start Date: 02/26/2020 End Date: 03/14/2020 Elapsed Days: 17 Reason for visit: The patient is being seen today as part of their regularly scheduled weekly on treatment visits to assess for acute toxicities from radiotherapy. Review of Systems: She reported increased urination and occasional loose stool. Vital Signs: Performed on 03/14/2020 11:02 AM BMI - 31.036 kg/m2 (high), Height - 70.50 in, Weight - 219.4 lbs, Temperature - 97.8 f, Pulse - 64, Respiration - 18, O2 Sat - 98 %, Pain - 0 and BP - 137/ 76 mm(hg). Physical Exam: Examination of the skin within the treatment lopes did not reveal any erythema. Imaging: Radiation therapy imaging related to accurate target localization (i.e. KV, MV and CBCT) was reviewed. Appropriate changes, if any, were made to ensure treatment accuracy. Plan: Continue post-operative pelvic radiotherapy as prescribed. Signed by: Dr. Steve Cabrera 03/14/2020 11:13:16 AM
[2020-03-14] MEDS: FUROsemide 10 mg/mL SDV 2mL 20 MG IV (14:18)
[2020-03-14] MEDS: potassium chloride ER 10 mEq Tablet 40 MEQ PO (14:18)
[2020-03-14] MEDS: sodium chloride 0.9% 500 ML IV (14:21)
--- NOTE | 2020-03-18 10:56 | N.ONRAD NP_ITS ---
Radiation Oncology Weekly Treatment Management Patient: Ashleigh Mitchell MR#: [id number] : 1985 Attending Physician: Dr. Steve Cabrera Date of Service: 03/18/2020 Referring Physician(s): Dr. Ben Ellison Diagnosis: Cervical cancer Treatment Site: pelvis Dose: 27 Gy of a prescribed 50.4 Gy. Review of Systems: The patient denied any complaints. Vital Signs: Weight - 147 lbs. Temperature -98.5 F, BP -117/71 mm (hg). Pulse ???68 bpm, Respirations - 18, oxygen saturation was 95% on room air Physical Exam: The breast did not demonstrate any erythema. Imaging: Radiation therapy imaging related to accurate target localization (i.e. KV, MV and CBCT) was reviewed. Appropriate changes, if any, were made to ensure treatment accuracy. Plan: Hypofractionated radiotherapy completed today. Signed by: Dr. Steve Cabrera 03/18/2020 10:54:45 AM
[2020-03-21 09:19] LABS: Basophils % 0.5 %; Eosinophils # 0.1 10^3/uL (0.0-0.8); Eosinophils % 3.7 %; Hematocrit 38.1 % (37.0-47.0); Hemoglobin 11.7 g/dL (11.5-15.3); Lymphocytes # 0.3 10^3/uL (0.8-4.8); Mean Corpuscular HGB Conc 30.7 g/dL (30.0-36.0); Mean Corpuscular Hemoglobin 25.7 pg (28.0-34.0); Mean Corpuscular Volume 83.7 fL (81-99); Mean Platelet Volume 8.7 fL (7.4-10.4); Monocytes # 0.4 10^3/uL (0.2-0.9); Monocytes % 9.4 %; Neutrophils # 2.95 10^3/uL (1.8-7.7); Neutrophils % 78.9 %; Nucleated Red Blood Cells % 0 %; Platelet Count 149 10^3/cmm (130-400); Red Blood Count 4.55 10^6/uL (4.1-5.3); Red Cell Distribution Width 16.9 % (12.1-15.1); White Blood Count 3.7 10^3/uL (4.0-10.0)
[2020-03-21 09:38] LABS: Alanine Aminotransferase 13 U/L (0-33); Albumin Level 4.1 g/dL (3.5-5.2); Alkaline Phosphatase 74 IU/L (35-105); Anion Gap 14.5 (5-19); Aspartate Amino Transferase 13 U/L (0-32); Blood Urea Nitrogen 11 mg/dL (6-20); Calcium 8.7 mg/dL (8.5-10.5); Carbon Dioxide 24 mmol/L (22-29); Chloride 104 mmol/L (98-107); Globulin 2.6 g/dL (1.3-4.6); Glomerular Filtration Rate 95.8 mL/min (90-130); Glucose 94 mg/dL (65-115); Osmolality Calculated 285 mOsm/kg (285-295); Potassium 4.5 mmol/L (3.5-5.1); Sodium 138 mmol/L (136-145); Total Bilirubin 0.2 mg/dL (0.15-1.2); Total Protein 6.7 g/dL (6.6-8.7)
--- NOTE | 2020-03-21 23:30 | ONC FU_ITS ---
[facility] Patient Note Patient: Ashleigh Mitchell Unit #: [id number]: 1985 Dictated By: Rahel SaabDate of Visit: Mar 14, 2020 Onc MED Follow-Up/Prog Note Chief Complaint: Cervical cancer History of Present Illness: Ms. Mitchell is a 34-year-old female who was found to have abnormal Pap smear in August 2019. She underwent conization by Dr. Wiseman which confirmed invasive cervical cancer. Ms Mitchell was referred to Dr. Ellison in [place]. There she underwent CT scan of chest abdomen pelvis on November 08, 2019 which showed a solitary 2 mm fissural nodule in the left lung; 9 mm arterial phase hyperenhancing lesion in the liver lateral hepatic segment. No abnormality in the abdomen and pelvis. Subsequently on December 12, 2019, she underwent radical total abdominal hysterectomy, bilateral salpingectomy, bilateral ovarian transposition and omental J flap to isolate small bowel from the pelvis. 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 Ms Mitchell says she has history of abnormal Pap smear but was noncompliant as far as follow-up. She has history of anxiety and restlessness as well family history. She reports she had a paternal aunt who had cervical cancer. Ms Mitchell was referred to [facility] for consideration of concurrent therapy. She started on adjuvant combined chemoradiation on February 26, 2020 with weekly cisplatin. She has tolerated it well thus far. Ms. Mitchell is here today for follow-up. She is due for week 3 cisplatin. She has tolerated it well overall. She has had some intermittent nausea but states is well controlled with cannabis. She does have antiemetics at home as well and states they help some but the natural product is controlling it much better. She has no adverse reactions to the natural cannabis. She states she is having heartburn. She is taking Tums at least daily if not multiple times to the day. She states her anxiety is well controlled with the Xanax and she does need a refill for that today. She denies any headaches. She said no vision changes. She denies any hearing changes. She states she has not had any neuropathy symptoms. She denies any diarrhea or constipation. Her diet is good. Her energy is marginal. She states she has to keep up with her kids so she is constantly busy. She states she is sleeping good as long as her nausea is controlled and the anxiety is controlled. Her pain had responded well to the Percocet. She states the pain is controlled currently and she does not feel that is a problem. She denies any bowel or bladder concerns at this time. She has had no UTI or yeast symptoms at this point. She denies any mouth sores, sore throat or difficulty swallowing. Her ECOG is 1. Past Medical History: Ms. Mitchell's medical history is unremarkable. Past Surgical History: Colposcopy Hysterectomy/bilateral salpingectomy-oophorectomy Tubal ligation in 2006 Allergies: No Known Allergies. Medications: ALPRAZolam 1 Tablet (of 0.5 mg) Tablet Oral t.i.d. Prochlorperazine Maleate 1 Tablet (of 10 mg) Oral q 4 hours PRN Family History: Ms. Mitchell's mother is alive. Ms. Mitchell's father is alive. Ms. Mitchell has 1 paternal aunt who is : ovarian cancer. Social History: Ms. Mitchell is single. Ms. Mitchell has never smoked. She is a former drinker. She has indicated exposure to the following products: marijuana. Review Of Symptoms: Constitutional Denies fevers, chills, night sweats, excessive fatigue or weight loss. Allergic/Immunologic No reactions. Eyes Denies significant visual changes. No diplopia. No amaurosis. ENMT Denies changes in hearing, sore throat, mouth sores, difficulty or changes in swallowing ability, and/or sinus drainage. Endocrine No diabetes, thyroid disease or hormone replacement. Denies hot flashes or night sweats. Hematologic/Lymphatic Denies easy bruising or bleeding. The patient denies any tender or palpable lymph nodes. Respiratory Denies dyspnea on exertion, chest pain, cough or hemoptysis. Denies orthopnea. Cardiovascular Denies anginal chest pain, palpitations or orthopnea. Gastrointestinal Denies worsening nausea, vomiting, diarrhea, GI bleeding, or constipation. Denies change in bowel habits and/or stool color, no heartburn or early satiety. Genitourinary (F) No hematuria, hesitancy, incontinence, vaginal bleeding, discharge or other problems with urination. Musculoskeletal Denies joint pain, swelling or redness. No decreased range of motion. Integumentary Denies chronic rashes, inflammation, ulcerations or skin changes. Neurologic Denies headache, blurred vision, and no areas of focal weakness or numbness. Normal gait. No sensory problems. Psychiatric Denies insomnia, depression, richmond or mood swings. Vital Signs: Performed on Mar 14, 2020 11:02 Height - 70.50 in Weight - 219.4 lbs Temperature - 97.8 F Pulse - 64 Respiration - 18 BP - 137/76 mm(hg) O2 Sat - 98 % Pain - 0 Performed on Mar 14, 2020 11:02 BMI - 31.036 kg/m2 (HIGH),1 - No physically strenuous activity, but ambulatory and able to carry out light or sedentary work (e.g. office work, light house work). (ECOG) Physical Examination: Constitutional Alert, oriented, no acute distress. Skin pink, warm and dry. Head Normocephalic; atraumatic. Eyes Conjunctivae and sclerae are clear and without icterus. Pupils are reactive and equal. Neck Supple without masses or thyromegaly. No jugular venous distension. Hematologic/Lymphatic No petechiae or purpura. No tender or palpable lymph nodes in the cervical or supraclavicular areas. Respiratory Lungs are clear to auscultation without rhonchi or wheezing. Cardiovascular Regular rate and rhythm of heart without murmurs,clicks, gallops or rubs. Abdomen Non-tender, non-distended, no masses or ascites. Good bowel sounds noted in all quads. No guarding or rebound tenderness. No pulsatile masses. Back/Spine Non-tender to palpation. Extremities No visible deformities, no cyanosis, clubbing or edema. Musculoskeletal No tenderness or swelling, normal range of motion without obvious weakness. Integumentary No rashes or lesions. Neurologic No sensory or motor deficits, normal cerebellar function, normal gait. Psychiatric Alert and oriented times three. Coherent speech. Verbalizes understanding of our discussions today. Laboratory: see below or flow sheet Impression: 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 Perineural invasion seen, lymphovascular invasion also identified. Pathological stage stage T1b1, N0, MX (high risk) Started on Adjuvant combined chemoradiation therapy on February 26, 2020 with weekly cisplatin Anxiety disorder Plan: 1. Proceed with week 3 cisplatin at current dose. 2. Continue to aggressive antiemetics due to high risk regimen. She is having some breakthrough nausea at home but is controlled with her nausea regimen. 3. Labs from today were reviewed in detail and discussed with Ms. Mitchell and a copy was given to her. WBC 4.0, hemoglobin 12.5, platelets 179,000 ANC is 3200. Potassium 4.1 random glucose 110 creatinine 0.6 and LFTs are normal. 4. We will have her try omeprazole 20 mg 1 or 2 daily for gastritis symptoms. This was called to [facility] in [place]. 5. We will refill her Xanax at 1 mg 3 times daily #90 for her anxiety. 6. We will plan to see her back in 1 week with CBC CMP and plan for cycle/week 4 cisplatin. 7. Ms. Mitchell was instructed to contact us in the interim should questions or problems arise. Signed By: Rahel Saab-, AOJONAS Berger MD <<Signature on File>>
--- NOTE | 2020-03-25 08:52 | ONC FU_ITS ---
[facility] Patient Note Patient: Ashleigh Mitchell Unit #: [id number]: 1985 Dictated By: Rahel SaabDate of Visit: Mar 21, 2020 Onc MED Follow-Up/Prog Note Chief Complaint: Cervical cancer History of Present Illness: Ms. Mitchell is a 34-year-old female who was found to have abnormal Pap smear in August 2019. She underwent conization by Dr. Wiseman which confirmed invasive cervical cancer. Ms Mitchell was referred to Dr. Ellison in [place]. There she underwent CT scan of chest abdomen pelvis on November 08, 2019 which showed a solitary 2 mm fissural nodule in the left lung; 9 mm arterial phase hyperenhancing lesion in the liver lateral hepatic segment. No abnormality in the abdomen and pelvis. Subsequently on December 12, 2019, she underwent radical total abdominal hysterectomy, bilateral salpingectomy, bilateral ovarian transposition and omental J flap to isolate small bowel from the pelvis. 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 Ms Mitchell says she has history of abnormal Pap smear but was noncompliant as far as follow-up. She has history of anxiety and restlessness as well family history. She reports she had a paternal aunt who had cervical cancer. Ms Mitchell was referred to [facility] for consideration of concurrent therapy. She started on adjuvant combined chemoradiation on February 26, 2020 with weekly cisplatin. She has tolerated it well thus far. Ms. Mitchell is here today for follow-up. She is due for week 4 cisplatin. She has tolerated it well overall. She has had some intermittent nausea but states is well controlled with cannabis. She states since starting the omeprazole the heartburn has subsided. She states she is eating good. She states the nausea is better. She denies any pain. She denies any trouble swallowing. She states her bowels and bladder are normal for her. She states she has just blah this morning because she did not sleep super well last night. She denies any concerns today. Unfortunately we had power outage during her visit and she received only half of her radiation. Her last cisplatin was on 03/14/2020. And next week is a short week. We were unable to mix her cisplatin while she was here therefore we have rescheduled her for Wednesday. She is in agreement as she states she could not stay later than her planned visit today because she had to picker feeder her kids. Her ECOG is 1. Past Medical History: Ms. Mitchell's medical history is unremarkable. Past Surgical History: Colposcopy Hysterectomy/bilateral salpingectomy-oophorectomy Tubal ligation in 2006 Allergies: No Known Allergies. Medications: ALPRAZolam 1 Tablet (of 0.5 mg) Tablet Oral t.i.d. Prochlorperazine Maleate 1 Tablet (of 10 mg) Oral q 4 hours PRN Family History: Ms. Mithcell's mother is alive. Ms. Mitchell's father is alive. Ms. Mitchell has 1 paternal aunt who is : ovarian cancer. Social History: Ms. Mitchell is single. Ms. Mitchell has never smoked. She is a former drinker. She has indicated exposure to the following products: marijuana. Review Of Symptoms: Constitutional Denies fevers, chills, night sweats, excessive fatigue or weight loss. Allergic/Immunologic No reactions. Eyes Denies significant visual changes. No diplopia. No amaurosis. ENMT Denies changes in hearing, sore throat, mouth sores, difficulty or changes in swallowing ability, and/or sinus drainage. Endocrine No diabetes, thyroid disease or hormone replacement. Denies hot flashes or night sweats. Hematologic/Lymphatic Denies easy bruising or bleeding. The patient denies any tender or palpable lymph nodes. Respiratory Denies dyspnea on exertion, chest pain, cough or hemoptysis. Denies orthopnea. Cardiovascular Denies anginal chest pain, palpitations or orthopnea. Gastrointestinal Denies worsening nausea, vomiting, diarrhea, GI bleeding, or constipation. Denies change in bowel habits and/or stool color, no heartburn or early satiety. Genitourinary (F) No hematuria, hesitancy, incontinence, vaginal bleeding, discharge or other problems with urination. Musculoskeletal Denies joint pain, swelling or redness. No decreased range of motion. Integumentary Denies chronic rashes, inflammation, ulcerations or skin changes. Neurologic Denies headache, blurred vision, and no areas of focal weakness or numbness. Normal gait. No sensory problems. Psychiatric Denies insomnia, depression, richmond or mood swings. Vital Signs: ,1 - No physically strenuous activity, but ambulatory and able to carry out light or sedentary work (e.g. office work, light house work). (ECOG) Physical Examination: Constitutional Alert, oriented, no acute distress. Skin pink, warm and dry. Head Normocephalic; atraumatic. Eyes Conjunctivae and sclerae are clear and without icterus. Pupils are reactive and equal. Neck Supple without masses or thyromegaly. No jugular venous distension. Hematologic/Lymphatic No petechiae or purpura. Back/Spine Non-tender to palpation. Extremities No visible deformities, no cyanosis, clubbing or edema. Musculoskeletal No tenderness or swelling, normal range of motion without obvious weakness. Integumentary No rashes or lesions. Neurologic No sensory or motor deficits, normal cerebellar function, normal gait. Psychiatric Alert and oriented times three. Coherent speech. Verbalizes understanding of our discussions today. Laboratory:Test performed on Mar 21, 2020 09:07 Sodium 138 mmol/L Potassium 4.5 mmol/L Chloride 104 mmol/L CO2 24 mmol/L Anion Gap 14.5 BUN 11 mg/dL Creatinine 0.7 mg/dL Cr Clearance (Est) 176.6100 mL/min eGFR 95.8 mL/min Glucose 94 mg/dL Osmolality - Calculated 285 mOsm/kg Calcium 8.7 mg/dL Protein, Total 6.7 g/dL Albumin 4.1 g/dL Globulin 2.6 g/dL Bilirubin, Total 0.2 mg/dL ALT (SGPT) 13 U/L AST (SGOT) 13 U/L Alkaline Phosphatase 74 IU/L WBC 3.7 10 3/uL RBC 4.55 10 6/uL HGB 11.7 g/dL HCT 38.1 % MCV 83.7 fL MCH 25.7 pg MCHC 30.7 g/dL RDW 16.9 % Platelet Count 149 10 3/cmm MPV 8.7 fL Neutrophils 2.95 10 3/uL Lymphocytes 0.3 10 3/uL Monocytes 0.4 10 3/uL Eosinophils 0.1 10 3/uL Basophils 0.0 10 3/uL Neutrophil % 78.9 % Lymphocyte % 7.0 % Monocyte % 9.4 % Eosinophil % 3.7 % Basophils % 0.5 % NRBC % 0 % Impression: 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 Perineural invasion seen, lymphovascular invasion also identified. Pathological stage stage T1b1, N0, MX (high risk) Started on Adjuvant combined chemoradiation therapy on February 26, 2020 with weekly cisplatin Anxiety disorder Plan: 1. We will delay cycle 4 due to power outage at night unable to mix her chemotherapy and she was unable to stay later than her planned visit due to need to picker feeder her kids. We will plan to treat her on Wednesday. 2. Continue to aggressive antiemetics due to high risk regimen. She is having some breakthrough nausea at home but is controlled with her nausea regimen. 3. Labs from today were reviewed in detail and discussed with Ms. Mitchell and a copy was given to her. WBC 3.7, hemoglobin 11.7 platelets 1 49,000 ANC is 3000. Potassium 4.5 glucose 94 creatinine 0.7 LFTs are normal. 3. She did receive hydration today in anticipation of the chemotherapy. 4. Continue omeprazole 20 mg daily. 5. We will plan to see her back on Wednesday March 25, 2020 for chemotherapy. 6. Ms. Mitchell was instructed to contact us in the interim should questions or problems arise. Signed By: Rahel Saab-RONALD, AOTATYANAP Kaylyn Berger MD <<Signature on File>>
--- NOTE | 2020-03-25 10:21 | ONCRAD TMN_ITS ---
Radiation Oncology Weekly Treatment Management Patient: Stephen Sotelo MR#: [id number] : 1985 Attending Physician: Steve Cabrera M.D. Date of Service: 03/25/2020 Referring Physician(s): Dr. Ben Ellison Diagnosis: Cervical cancer Treatment Site: Pelvis Dose: 34.2 Gy of a prescribed 50.4 Gy. Review of Systems: The patient described nausea which is controlled with her antiemetic prescription. Vital Signs: Weight - 221 lbs. Temperature -98.1 F, BP -128/87 (mm Hg). Pulse ??? 71 bpm, Respirations - 18, oxygen saturation was 98% with ambient air Physical Exam: The skin within the treatment lopes did not demonstrate any erythema. Imaging: Radiation therapy imaging related to accurate target localization (i.e. KV, MV and CBCT) was reviewed. Appropriate changes, if any, were made to ensure treatment accuracy. Plan: Continue pelvic radiotherapy as prescribed. Signed by: Dr. Steve Cabrera 03/25/2020 10:20:29 AM
[2020-03-25] MEDS: sodium chloride 0.9% 250 ML 75 ML IV (10:30)
[2020-03-25 11:11] LABS: Basophils % 0.6 %; Eosinophils # 0.1 10^3/uL (0.0-0.8); Eosinophils % 3.4 %; Hematocrit 37.1 % (37.0-47.0); Hemoglobin 11.6 g/dL (11.5-15.3); Lymphocytes # 0.3 10^3/uL (0.8-4.8); Lymphocytes % 8.6 %; Mean Corpuscular HGB Conc 31.3 g/dL (30.0-36.0); Mean Corpuscular Hemoglobin 26.1 pg (28.0-34.0); Mean Corpuscular Volume 83.4 fL (81-99); Monocytes # 0.3 10^3/uL (0.2-0.9); Neutrophils # 2.58 10^3/uL (1.8-7.7); Neutrophils % 79.1 %; Nucleated Red Blood Cells % 0 %; Platelet Count 168 10^3/cmm (130-400); Red Blood Count 4.45 10^6/uL (4.1-5.3); Red Cell Distribution Width 17.3 % (12.1-15.1); White Blood Count 3.3 10^3/uL (4.0-10.0)
[2020-03-25 11:16] LABS: Alanine Aminotransferase 13 U/L (0-33); Alkaline Phosphatase 68 IU/L (35-105); Anion Gap 14.4 (5-19); Aspartate Amino Transferase 20 U/L (0-32); Blood Urea Nitrogen 12 mg/dL (6-20); Calcium 8.6 mg/dL (8.5-10.5); Carbon Dioxide 22 mmol/L (22-29); Chloride 105 mmol/L (98-107); Globulin 2.5 g/dL (1.3-4.6); Glomerular Filtration Rate 114.4 mL/min (90-130); Glucose 86 mg/dL (65-115); Osmolality Calculated 283 mOsm/kg (285-295); Potassium 4.4 mmol/L (3.5-5.1); Sodium 137 mmol/L (136-145); Total Bilirubin 0.2 mg/dL (0.15-1.2); Total Protein 6.5 g/dL (6.6-8.7)
[2020-03-25] MEDS: potassium chloride ER 10 mEq Tablet 40 MEQ PO (14:50)
[2020-03-25] MEDS: FUROsemide 10 mg/mL SDV 2mL 20 MG IV (14:50)
[2020-03-25] MEDS: sodium chloride 0.9% 500 ML IV (14:52)
--- NOTE | 2020-03-29 14:47 | ONC FU_ITS ---
[facility] Patient Note Patient: Ashleigh Mitchell Unit #: [id number]: 1985 Dictated By: Rahel SaabDate of Visit: Mar 25, 2020 Onc MED Follow-Up/Prog Note Chief Complaint: Cervical cancer History of Present Illness: Ms. Mitchell is a 34-year-old female who was found to have abnormal Pap smear in August 2019. She underwent conization by Dr. Wiseman which confirmed invasive cervical cancer. Ms Mitchell was referred to Dr. Ellison in [place]. There she underwent CT scan of chest abdomen pelvis on November 08, 2019 which showed a solitary 2 mm fissural nodule in the left lung; 9 mm arterial phase hyperenhancing lesion in the liver lateral hepatic segment. No abnormality in the abdomen and pelvis. Subsequently on December 12, 2019, she underwent radical total abdominal hysterectomy, bilateral salpingectomy, bilateral ovarian transposition and omental J flap to isolate small bowel from the pelvis. 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 Ms Mitchell says she has history of abnormal Pap smear but was noncompliant as far as follow-up. She has history of anxiety and restlessness as well family history. She reports she had a paternal aunt who had cervical cancer. Ms Mitchell was referred to [facility] for consideration of concurrent therapy. She started on adjuvant combined chemoradiation on February 26, 2020 with weekly cisplatin. She has tolerated it well thus far. CT of the chest without contrast from March 18, 2020. It indicates right hilar mass and/or lymphadenopathy somewhat smaller than noted on previous study. Decreased right pleural effusion. Small left pleural effusion. Bilateral pulmonary nodules unchanged. Left hilar lymphadenopathy. Residual infiltrates in the right upper and lower lobes and also the left upper lobes. Metastatic lesions are noted in the liver. Nodularity are also noted in the retrocrural fat as well as along the posterior right perarenal fat. Areas of bony sclerosis noted in thoracic and lumbar vertebrae as well as the sternum may be indicating bone metastasis and this is a change since prior study. Ms. Mitchell is here today for follow-up. She is due for week 5 cisplatin. She has tolerated it well overall. She states overall she thinks she is doing good. She has no new concerns today. She states her nausea still is well controlled. She states that she has had some chest congestion off and on that comes and goes. She states this is not unusual for her at this time of the year. She has chronic upper/lower respiratory infections and thinks they may be trying to flareup now. She states she is having little bit more back pain from having to lay on the radiation table and wanted to increase her Percocet to 10 mg if possible. She is taking 2 at a time this does give her some relief long enough to lay on the table. She has no other concerns today. She denies diarrhea or constipation. She denies nausea or vomiting. She states her appetite is good. Lower extremities have no edema. She denies any orthopnea, dyspnea or chest discomfort/palpitations. Her ECOG is 1. Past Medical History: Ms. Mitchell's medical history is unremarkable. Past Surgical History: Colposcopy Hysterectomy/bilateral salpingectomy-oophorectomy Tubal ligation in 2006 Allergies: No Known Allergies. Medications: ALPRAZolam 1 Tablet (of 0.5 mg) Tablet Oral t.i.d. Prochlorperazine Maleate 1 Tablet (of 10 mg) Oral q 4 hours PRN Family History: Ms. Mitchell's mother is alive. Ms. Mitchell's father is alive. Ms. Mitchell has 1 paternal aunt who is : ovarian cancer. Social History: Ms. Mitchell is single. Ms. Mitchell has never smoked. She is a former drinker. She has indicated exposure to the following products: marijuana. Review Of Symptoms: Constitutional Denies fevers, chills, night sweats, excessive fatigue or weight loss. Allergic/Immunologic No reactions. Eyes Denies significant visual changes. No diplopia. No amaurosis. ENMT Denies changes in hearing, sore throat, mouth sores, difficulty or changes in swallowing ability, and/or sinus drainage. Endocrine No diabetes, thyroid disease or hormone replacement. Denies hot flashes or night sweats. Hematologic/Lymphatic Denies easy bruising or bleeding. The patient denies any tender or palpable lymph nodes. Respiratory Denies dyspnea on exertion, chest pain, cough or hemoptysis. Denies orthopnea. Cardiovascular Denies anginal chest pain, palpitations or orthopnea. Gastrointestinal Denies worsening nausea, vomiting, diarrhea, GI bleeding, or constipation. Denies change in bowel habits and/or stool color, no heartburn or early satiety. Genitourinary (F) No hematuria, hesitancy, incontinence, vaginal bleeding, discharge or other problems with urination. Musculoskeletal Denies joint pain, swelling or redness. No decreased range of motion. Low to mid back pain that comes and goes...worse with radiation positioning. Integumentary Denies chronic rashes, inflammation, ulcerations or skin changes. Neurologic Denies headache, blurred vision, and no areas of focal weakness or numbness. Normal gait. No sensory problems. Psychiatric Denies insomnia, depression, richmond or mood swings. Vital Signs: Performed on Mar 25, 2020 11:15 Height - 70.50 in Weight - 222.8 lbs (HIGH) BSA - 2.20 sq.m BMI - 31.52 (HIGH) Temperature - 97.4 F (LOW) Pulse - 65 /min Respiration - 20 /min BP - 124/81 mm(hg) O2 Sat - 98 % Pain - 0 Performed on Mar 25, 2020 10:13 Height - 70.50 in Weight - 221.0 lbs Temperature - 98.1 F Pulse - 71 Respiration - 18 BP - 128/87 mm(hg) O2 Sat - 98 % Pain - 0 Performed on Mar 25, 2020 10:13 BMI - 31.262 kg/m2 (HIGH),1 - No physically strenuous activity, but ambulatory and able to carry out light or sedentary work (e.g. office work, light house work). (ECOG) Physical Examination: Constitutional Alert, oriented, no acute distress. Skin pink, warm and dry. Head Normocephalic; atraumatic. Eyes Conjunctivae and sclerae are clear and without icterus. Pupils are reactive and equal. Neck Supple without masses or thyromegaly. No jugular venous distension. Hematologic/Lymphatic No petechiae or purpura. Respiratory Lungs are clear to auscultation without rhonchi or wheezing. Cardiovascular Regular rate and rhythm of heart without murmurs,clicks, gallops or rubs. Abdomen Non-tender, non-distended, no masses or ascites. Good bowel sounds noted in all quads. No guarding or rebound tenderness. No pulsatile masses. Back/Spine Non-tender to palpation. Extremities No visible deformities, no cyanosis, clubbing or edema. Musculoskeletal No tenderness or swelling, normal range of motion without obvious weakness. Integumentary No rashes or lesions. Neurologic No sensory or motor deficits, normal cerebellar function, normal gait. Psychiatric Alert and oriented times three. Coherent speech. Verbalizes understanding of our discussions today. Laboratory:Test performed on Mar 25, 2020 10:38 Sodium 137 mmol/L Potassium 4.4 mmol/L Chloride 105 mmol/L CO2 22 mmol/L Anion Gap 14.4 BUN 12 mg/dL Creatinine 0.6 mg/dL Cr Clearance (Est) 206.0500 mL/min eGFR 114.4 mL/min Glucose 86 mg/dL Osmolality - Calculated 283 mOsm/kg Calcium 8.6 mg/dL Protein, Total 6.5 g/dL Albumin 4.0 g/dL Globulin 2.5 g/dL Bilirubin, Total 0.2 mg/dL ALT (SGPT) 13 U/L AST (SGOT) 20 U/L Alkaline Phosphatase 68 IU/L WBC 3.3 10 3/uL RBC 4.45 10 6/uL HGB 11.6 g/dL HCT 37.1 % MCV 83.4 fL MCH 26.1 pg MCHC 31.3 g/dL RDW 17.3 % Platelet Count 168 10 3/cmm MPV 9.0 fL Neutrophils 2.58 10 3/uL Lymphocytes 0.3 10 3/uL Monocytes 0.3 10 3/uL Eosinophils 0.1 10 3/uL Basophils 0.0 10 3/uL Neutrophil % 79.1 % Lymphocyte % 8.6 % Monocyte % 8.0 % Eosinophil % 3.4 % Basophils % 0.6 % NRBC % 0 % Test performed on Mar 04, 2020 00:00 Manual Diff Cancelled via OM: Cancelled in Connected System 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 Perineural invasion seen, lymphovascular invasion also identified. Pathological stage stage T1b1, N0, MX (high risk) Started on Adjuvant combined chemoradiation therapy on February 26, 2020 with weekly cisplatin Anxiety disorder Plan: 1. 1. Proceed with cycle/week 4 cisplatin. She was delayed last week due to power outage and generally got half of her radiation treatment last week on as well. 2. Continue to aggressive antiemetics due to high risk regimen. She is having some breakthrough nausea at home but is controlled with her nausea regimen. 3. Labs from today were reviewed in detail and discussed with Ms. Mitchell and a copy was given to her. WBC 3.3, hemoglobin 11.6 [place] 168[place] [id number]. Potassium 4.4 glucose 86 creatinine 0.6 LFTs are normal. 3. She did receive hydration today in anticipation of the chemotherapy. 4. Continue omeprazole 20 mg daily. 5. We will plan to see her back in 1 week wit [facility] for chemotherapy. 6. She was given a refill on her oxycodone APAP 10/[address] Ayon's written prescription. 7. Ms. Mitchell was instructed to contact us in the interim should questions or problems arise. Signed By: Rahel Saab MD <<Signature on File>>
[2020-04-01 12:49] LABS: Basophils % 0.3 %; Eosinophils # 0.1 10^3/uL (0.0-0.8); Hematocrit 36.4 % (37.0-47.0); Hemoglobin 11.3 g/dL (11.5-15.3); Lymphocytes # 0.3 10^3/uL (0.8-4.8); Lymphocytes % 9.8 %; Mean Corpuscular Volume 83.9 fL (81-99); Mean Platelet Volume 8.7 fL (7.4-10.4); Monocytes # 0.4 10^3/uL (0.2-0.9); Monocytes % 10.7 %; Neutrophils # 2.56 10^3/uL (1.8-7.7); Neutrophils % 75.9 %; Nucleated Red Blood Cells % 0 %; Platelet Count 191 10^3/cmm (130-400); Red Blood Count 4.34 10^6/uL (4.1-5.3); Red Cell Distribution Width 17.7 % (12.1-15.1); White Blood Count 3.4 10^3/uL (4.0-10.0)
[2020-04-01 13:19] LABS: Alanine Aminotransferase 13 U/L (0-33); Albumin Level 4.2 g/dL (3.5-5.2); Alkaline Phosphatase 67 IU/L (35-105); Anion Gap 14.2 (5-19); Aspartate Amino Transferase 10 U/L (0-32); Blood Urea Nitrogen 11 mg/dL (6-20); Calcium 8.7 mg/dL (8.5-10.5); Carbon Dioxide 24 mmol/L (22-29); Chloride 106 mmol/L (98-107); Globulin 2.4 g/dL (1.3-4.6); Glomerular Filtration Rate 114.4 mL/min (90-130); Glucose 87 mg/dL (65-115); Osmolality Calculated 289 mOsm/kg (285-295); Potassium 4.2 mmol/L (3.5-5.1); Sodium 140 mmol/L (136-145); Total Bilirubin 0.2 mg/dL (0.15-1.2); Total Protein 6.6 g/dL (6.6-8.7)
--- NOTE | 2020-04-01 13:48 | ONCRAD TMN_ITS ---
Radiation Oncology Weekly Treatment Management Patient: Stephen Sotelo MR#: [id number] : 1985> Attending Physician: Steve Cabrera M.D. Date of Service: 04/01/2020 Referring Physician(s): Dr. Ben Ellison Diagnosis: Cervical cancer Treatment Site: Pelvis Dose: 37.8 Gy of a prescribed 50.4 Gy. Review of Systems: The patient described fatigue Vital Signs: Weight - 220 lbs. Temperature -96.8 F, BP -149/82 (mm Hg). Pulse ??? 75 bpm, Respirations - 18 Physical Exam: The skin within the treatment lopes did not demonstrate any erythema. Imaging: Radiation therapy imaging related to accurate target localization (i.e. KV, MV and CBCT) was reviewed. Appropriate changes, if any, were made to ensure treatment accuracy. Plan: Continue pelvic radiotherapy as planned. Signed by: Dr. Steve Cabrera 04/01/2020 1:47:21 PM
[2020-04-01 17:21] LABS: Thyroid Stimulating Hormone 0.55 uIU/mL (0.27-4.20)
--- NOTE | 2020-04-02 13:29 | ONC FU_ITS ---
[facility] Patient Note Patient: Ashleigh Mitchell Unit #: [id number]: 1985 Dictated By: Rahel SaabDate of Visit: Apr 01, 2020 Onc MED Follow-Up/Prog Note Chief Complaint: Cervical cancer History of Present Illness: Ms. Mitchell is a 34-year-old female who was found to have abnormal Pap smear in August 2019. She underwent conization by Dr. Wiseman which confirmed invasive cervical cancer. Ms Mitchell was referred to Dr. Ellison in [place]. There she underwent CT scan of chest abdomen pelvis on November 08, 2019 which showed a solitary 2 mm fissural nodule in the left lung; 9 mm arterial phase hyperenhancing lesion in the liver lateral hepatic segment. No abnormality in the abdomen and pelvis. Subsequently on December 12, 2019, she underwent radical total abdominal hysterectomy, bilateral salpingectomy, bilateral ovarian transposition and omental J flap to isolate small bowel from the pelvis. 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 Ms Mitchell says she has history of abnormal Pap smear but was noncompliant as far as follow-up. She has history of anxiety and restlessness as well family history. She reports she had a paternal aunt who had cervical cancer. Ms Mitchell was referred to [facility] for consideration of concurrent therapy. She started on adjuvant combined chemoradiation on February 26, 2020 with weekly cisplatin. She has tolerated it well thus far. CT of the chest without contrast from March 18, 2020. It indicates right hilar mass and/or lymphadenopathy somewhat smaller than noted on previous study. Decreased right pleural effusion. Small left pleural effusion. Bilateral pulmonary nodules unchanged. Left hilar lymphadenopathy. Residual infiltrates in the right upper and lower lobes and also the left upper lobes. Metastatic lesions are noted in the liver. Nodularity are also noted in the retrocrural fat as well as along the posterior right perarenal fat. Areas of bony sclerosis noted in thoracic and lumbar vertebrae as well as the sternum may be indicating bone metastasis and this is a change since prior study. Ms. Mitchell is here today for follow-up. She is due for week 5 cisplatin. She continues daily radiation. She presents today saying that she is just really weak and washed out and tired. She denies any fever or chills. She has had no known Covid symptoms or exposure. However she states she did have a small gathering for [employer] and worked really hard for that and is just wore out. She states her nausea is better overall. She is had no emesis. She denies diarrhea or constipation. She denies any new neuropathy. She has had no hearing changes. She denies any mouth sores, sore throat or difficulty swallowing. She has had no vaginal bleeding or discharge. She denies any new concerns other than just being really washed out and tired today. Is also noted that they are working on the radiation machine today and she is unsure she will actually get radiation today. She has a transportation/scheduling conflict if her radiation runs later in this afternoon. She states she may not be able to to get that done today. Her ECOG is 1. Past Medical History: Ms. Mitchell's medical history is unremarkable. Past Surgical History: Colposcopy Hysterectomy/bilateral salpingectomy-oophorectomy Tubal ligation in 2006 Allergies: No Known Allergies. Medications: ALPRAZolam 1 Tablet (of 0.5 mg) Tablet Oral t.i.d. Prochlorperazine Maleate 1 Tablet (of 10 mg) Oral q 4 hours PRN Family History: Ms. Mitchell's mother is alive. Ms. Mitchell's father is alive. Ms. Mitchell has 1 paternal aunt who is : ovarian cancer. Social History: Ms. Mitchell is single. Ms. Mitchell has never smoked. She is a former drinker. She has indicated exposure to the following products: marijuana. Review Of Symptoms: Constitutional Denies fevers, chills, night sweats, or weight loss. Has excessive fatigue today. Worse over the weekend. Allergic/Immunologic No reactions. Eyes Denies significant visual changes. No diplopia. No amaurosis. ENMT Denies changes in hearing, sore throat, mouth sores, difficulty or changes in swallowing ability, and/or sinus drainage. Hematologic/Lymphatic Denies easy bruising or bleeding. The patient denies any tender or palpable lymph nodes. Respiratory Denies dyspnea on exertion, chest pain, cough or hemoptysis. Denies orthopnea. Cardiovascular Denies anginal chest pain, palpitations or orthopnea. Gastrointestinal Denies worsening nausea, vomiting, diarrhea, GI bleeding, or constipation. Denies change in bowel habits and/or stool color, no heartburn or early satiety. Genitourinary (F) No hematuria, hesitancy, incontinence, vaginal bleeding, discharge or other problems with urination. Musculoskeletal Denies joint pain, swelling or redness. No decreased range of motion. Low to mid back pain that comes and goes...worse with radiation positioning-stable. Integumentary Denies chronic rashes, inflammation, ulcerations or skin changes. Neurologic Denies headache, blurred vision, and no areas of focal weakness or numbness. Normal gait. No sensory problems. Psychiatric Denies insomnia, depression, richmond or mood swings. Vital Signs: Performed on Apr 01, 2020 13:45 Height - 70.50 in Weight - 220.4 lbs Temperature - 96.8 F Pulse - 75 Respiration - 18 BP - 149/82 mm(hg) (HIGH) O2 Sat - 97 % Pain - 0 Performed on Apr 01, 2020 13:45 BMI - 31.177 kg/m2 (HIGH) Performed on Apr 01, 2020 13:05 Height - 70.50 in Weight - 220.4 lbs (LOW) BSA - 2.19 sq.m BMI - 31.18 (HIGH) Temperature - 96.8 F (LOW) Pulse - 75 /min Respiration - 18 /min BP - 149/82 mm(hg) (HIGH) O2 Sat - 97 % Pain - 0,1 - No physically strenuous activity, but ambulatory and able to carry out light or sedentary work (e.g. office work, light house work). (ECOG) Physical Examination: Constitutional Alert, oriented, no acute distress. Skin pink, warm and dry. Head Normocephalic; atraumatic. Eyes Conjunctivae and sclerae are clear and without icterus. Pupils are reactive and equal. Neck Supple without masses or thyromegaly. No jugular venous distension. Hematologic/Lymphatic No petechiae or purpura. Respiratory Lungs are clear to auscultation without rhonchi or wheezing. Cardiovascular Regular rate and rhythm of heart without murmurs,clicks, gallops or rubs. Abdomen Non-tender, non-distended, no masses or ascites. Good bowel sounds noted in all quads. No guarding or rebound tenderness. No pulsatile masses. Back/Spine Non-tender to palpation. Extremities No visible deformities, no cyanosis, clubbing or edema. Musculoskeletal No tenderness or swelling, normal range of motion without obvious weakness. Integumentary No rashes or lesions. Neurologic No sensory or motor deficits, normal cerebellar function, normal gait. Psychiatric Alert and oriented times three. Coherent speech. Verbalizes understanding of our discussions today. Laboratory:Test performed on Apr 01, 2020 12:18 Sodium 140 mmol/L TSH 0.55 uIU/mL Potassium 4.2 mmol/L Chloride 106 mmol/L CO2 24 mmol/L Anion Gap 14.2 BUN 11 mg/dL Creatinine 0.6 mg/dL Cr Clearance (Est) 206.0500 mL/min eGFR 114.4 mL/min Glucose 87 mg/dL Osmolality - Calculated 289 mOsm/kg Calcium 8.7 mg/dL Protein, Total 6.6 g/dL Albumin 4.2 g/dL Globulin 2.4 g/dL Bilirubin, Total 0.2 mg/dL ALT (SGPT) 13 U/L AST (SGOT) 10 U/L Alkaline Phosphatase 67 IU/L WBC 3.4 10 3/uL RBC 4.34 10 6/uL HGB 11.3 g/dL HCT 36.4 % MCV 83.9 fL MCH 26.0 pg MCHC 31.0 g/dL RDW 17.7 % Platelet Count 191 10 3/cmm MPV 8.7 fL Neutrophils 2.56 10 3/uL Lymphocytes 0.3 10 3/uL Monocytes 0.4 10 3/uL Eosinophils 0.1 10 3/uL Basophils 0.0 10 3/uL Neutrophil % 75.9 % Lymphocyte % 9.8 % Monocyte % 10.7 % Eosinophil % 3.0 % Basophils % 0.3 % NRBC % 0 % Impression: 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 Perineural invasion seen, lymphovascular invasion also identified. Pathological stage stage T1b1, N0, MX (high risk) Started on Adjuvant combined chemoradiation therapy on February 26, 2020 with weekly cisplatin Anxiety disorder Plan: 1. 1. Proceed with cycle/week 5 cisplatin on 04/02/2020. 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 I did tell her I did not want to delay very long because we needed to keep her on treatment as much as possible. 2. Continue to aggressive antiemetics due to high risk regimen. She is having some breakthrough nausea at home but is controlled with her nausea regimen. 3. Labs from today were reviewed in detail and discussed with Ms. Mitchell and a copy was given to her. WBC 3.4 hemoglobin 11.3 platelets 291,000 ANC is 2560. Creatinine 0.6 potassium 4.2 LFTs are normal. 3. She did receive hydration today in anticipation of the chemotherapy so this will be repeated with her actual treatment tomorrow. 4. Continue omeprazole 20 mg daily. 5. We will plan to see her back in 1 week with CBC, CMP for chemotherapy. 6. Ms. Mitchell was instructed to contact us in the interim should questions or problems arise. Signed By: Rahel Saab-, AOP Kaylyn Berger MD <<Signature on File>>
== END 2020-04-01 23:59 | disposition home or self-care (01) ==
LOC: ONCMED 05:11
PROVIDERS: Internal Medicine Hematology & Oncology; Absent Provider Radiology Radiation Oncology; Visit Provider Nurse Practitioner
DX: Z51.0 Encounter for antineoplastic radiation therapy (principal); Z51.11 Encounter for antineoplastic chemotherapy; C53.9 Malignant neoplasm of cervix uteri, unspecified; R11.0 Nausea; R10.2 Pelvic and perineal pain; M54.5 Low back pain; F41.9 Anxiety disorder, unspecified; Z90.710 Acquired absence of both cervix and uterus; Z79.899 Other long term (current) drug therapy
CPT/HCPCS: 36415; 77336; 77386; 80053; 84443; 85025; 96361; 96365; 96366; 96367; 96375; 96413; 99214; J1100; J1453; J1940; J2469; J3475; J3480; J7030; J7040; J7050; J9060

== ENCOUNTER 2020-04-23 05:41 | Outpatient (RCR) | payer MEDICAID, SELFPAY ==
[2020-04-02] MEDS: sodium chloride 0.9% 250 ML 75 ML IV (12:28)
[2020-04-02] MEDS: palonosetron 0.25 mg/5 mL SDV IV (15:07)
[2020-04-02] MEDS: potassium chloride ER 10 mEq Tablet 40 MEQ PO (16:00)
[2020-04-02] MEDS: FUROsemide 10 mg/mL SDV 2mL 20 MG IV (16:51)
--- NOTE | 2020-04-08 10:42 | ONCRAD TMN_ITS ---
Radiation Oncology Weekly Treatment Management Patient: Ashleigh Mitchell MR#: [id number] : 1985 Attending Physician: Steve Cabrera M.D. Date of Service: 04/08/2020 Referring Physician(s): Dr. Ben Ellison Diagnosis: Cervical cancer Treatment Site: Pelvis Dose: 46.8 Gy of a prescribed 50.4 Gy. Review of Systems: The patient reported discomfort during urination. Vital Signs: Weight - 225 lbs. Temperature -98.5 F, BP -116/77 (mm Hg). Pulse ??? 86 bpm, Respirations - 18 Physical Exam: The skin within the treatment lopes did not demonstrate any erythema. Imaging: Radiation therapy imaging related to accurate target localization (i.e. KV, MV and CBCT) was reviewed. Appropriate changes, if any, were made to ensure treatment accuracy. Plan: Continue pelvic radiotherapy as planned. I will obtain an urinalysis because of the patient's dysuria. Signed by: Dr. Steve Cabrera 04/08/2020 10:40:27 AM
[2020-04-08 11:54] LABS: Bilirubin Urine Neg (Negative); Blood Urine Neg (Negative); Glucose Urine UA Norm (Normal); Ketones Urine Negative (Negative); Leukocyte Esterase Urine Negative (Negative); Nitrate Urine Negative (Negative); Protein Urine Neg (Negative); Urine Appearance Clear (CLEAR); Urine Color Yellow (Yellow); Urobilinogen Urine Norm (Negative); pH Urine 5 (5-7)
[2020-04-08 12:02] LABS: Add Urine Culture? No; Bacteria Urine TRACE /hpf; RBC Urine RARE /hpf (0-2); Squamous Epithelial Cell Urine RARE /hpf (0-5)
[2020-04-09 11:53] LABS: Basophils % 0.6 %; Eosinophils # 0.1 10^3/uL (0.0-0.8); Eosinophils % 1.7 %; Hematocrit 36.3 % (37.0-47.0); Hemoglobin 11.7 g/dL (11.5-15.3); Lymphocytes # 0.3 10^3/uL (0.8-4.8); Lymphocytes % 7.9 %; Mean Corpuscular HGB Conc 32.2 g/dL (30.0-36.0); Mean Corpuscular Hemoglobin 26.7 pg (28.0-34.0); Mean Corpuscular Volume 82.7 fL (81-99); Mean Platelet Volume 9.2 fL (7.4-10.4); Monocytes # 0.2 10^3/uL (0.2-0.9); Monocytes % 6.4 %; Neutrophils # 2.84 10^3/uL (1.8-7.7); Neutrophils % 82.8 %; Nucleated Red Blood Cells % 0 %; Platelet Count 179 10^3/cmm (130-400); Red Blood Count 4.39 10^6/uL (4.1-5.3); Red Cell Distribution Width 18.4 % (12.1-15.1); White Blood Count 3.4 10^3/uL (4.0-10.0)
[2020-04-09] MEDS: sodium chloride 0.9% 250 ML 75 ML IV (12:03)
[2020-04-09 12:10] LABS: Alanine Aminotransferase 15 U/L (0-33); Albumin Level 4.3 g/dL (3.5-5.2); Alkaline Phosphatase 70 IU/L (35-105); Anion Gap 14.3 (5-19); Aspartate Amino Transferase 14 U/L (0-32); Blood Urea Nitrogen 9 mg/dL (6-20); Calcium 9.1 mg/dL (8.5-10.5); Carbon Dioxide 24 mmol/L (22-29); Chloride 105 mmol/L (98-107); Globulin 2.5 g/dL (1.3-4.6); Glomerular Filtration Rate 95.8 mL/min (90-130); Glucose 103 mg/dL (65-115); Osmolality Calculated 287 mOsm/kg (285-295); Potassium 4.3 mmol/L (3.5-5.1); Sodium 139 mmol/L (136-145); Total Bilirubin 0.2 mg/dL (0.15-1.2); Total Protein 6.8 g/dL (6.6-8.7)
--- NOTE | 2020-04-09 13:19 | ONC FU_ITS ---
Dr. Berger follow up note Patient: Ashleigh Mitchell Unit #: [id number]: 1985 Dicatated By: Kaylyn Berger M.D.Date of Visit:Apr 09, 2020 Onc Med Follow-up/Prog Note History of Present Illness: Ms. Mitchell is a 34-year-old female who was found to have abnormal Pap smear in August 2019. She underwent conization by Dr. Wiseman which confirmed invasive cervical cancer. Ms Mitchell was referred to Dr. Ellison in [place]. There she underwent CT scan of chest abdomen pelvis on November 08, 2019 which showed a solitary 2 mm fissural nodule in the left lung; 9 mm arterial phase hyperenhancing lesion in the liver lateral hepatic segment. No abnormality in the abdomen and pelvis. Subsequently on December 12, 2019, she underwent radical total abdominal hysterectomy, bilateral salpingectomy, bilateral ovarian transposition and omental J flap to isolate small bowel from the pelvis. 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 Ms Mitchell says she has history of abnormal Pap smear but was noncompliant as far as follow-up. She has history of anxiety and restlessness as well family history. She reports she had a paternal aunt who had cervical cancer. Ms Mitchell was referred to [facility] for consideration of concurrent therapy. She started on adjuvant combined chemoradiation on February 26, 2020 with weekly cisplatin. She has tolerated it well thus far. CT of the chest without contrast from March 18, 2020. It indicates right hilar mass and/or lymphadenopathy somewhat smaller than noted on previous study. Decreased right pleural effusion. Small left pleural effusion. Bilateral pulmonary nodules unchanged. Left hilar lymphadenopathy. Residual infiltrates in the right upper and lower lobes and also the left upper lobes. Metastatic lesions are noted in the liver. Nodularity are also noted in the retrocrural fat as well as along the posterior right perarenal fat. Areas of bony sclerosis noted in thoracic and lumbar vertebrae as well as the sternum may be indicating bone metastasis and this is a change since prior study. 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 No hematuria, no melena or hematochezia, no jaundice, no mouth sores, Tolerating combined chemoradiation with weekly cisplatin well otherwise and she will complete her radiation therapy tomorrow morning Medications: ALPRAZolam 1 Tablet (of 0.5 mg) Tablet Oral t.i.d., Omeprazole 1 Tablet (of 20 mg) Tablet, enteric coated Oral daily, oxyCODONE-Acetaminophen 1 - 2 Tablet (of 10-325 mg) Oral q 4 hours PRN, Prochlorperazine Maleate 1 Tablet (of 10 mg) Oral q 4 hours PRN Allergies: No Known Allergies. Review of Systems: Constitutional - Appetite is good and weight is stable. No fever, positive for night sweats, or hot flashes. Energy level is poor, ENMT - No sinus congestion/drainage. No mouth sores. No sore throat or difficulty swallowing, Hematologic/Lymphatic - No abnormal bruising or bleeding, Respiratory - No shortness of breath. No cough. No pleuritic pain or hemoptysis, Cardiovascular - No angina pain. No palpitations, Gastrointestinal - No nausea or vomiting. Negative for heartburn and acid reflux. No diarrhea or constipation. No blood in the stool or black stools, Genitourinary (F) - No dysuria or hematuria. No urinary frequency. No urgency or incontinence, Musculoskeletal - Positive for joint and bone pain, Neurologic - Positive for headache or dizziness. No numbness or tingling. No other focal neurologic symptoms, Psychiatric - Positive for anxiety, depression and insomnia. Vital Signs: Performed on Apr 09, 2020 12:55 Height - 70.50 in Weight - 228.6 lbs (HIGH) BSA - 2.22 sq.m BMI - 32.34 (HIGH) Temperature - 97.9 F (LOW) Pulse - 80 /min Respiration - 16 /min BP - 119/79 mm(hg) O2 Sat - 98 % Pain - 6 Performance Status: 1 - No physically strenuous activity, but ambulatory and able to carry out light or sedentary work (e.g. office work, light house work). (ECOG) Physical Examination: ENMT - No mouth sores, no thrush, poor oral hygiene, Respiratory - Lungs are clear to auscultation, Cardiovascular - Regular rate and rhythm of heart, Abdomen - Soft, bowel sounds present, Extremities - No edema or rash. Lab/Imaging: Test performed on Apr 01, 2020 12:18 Sodium 140 mmol/L TSH 0.55 uIU/mL Potassium 4.2 mmol/L Chloride 106 mmol/L CO2 24 mmol/L Anion Gap 14.2 BUN 11 mg/dL Creatinine 0.6 mg/dL Cr Clearance (Est) 206.0500 mL/min eGFR 114.4 mL/min Glucose 87 mg/dL Osmolality - Calculated 289 mOsm/kg Calcium 8.7 mg/dL Protein, Total 6.6 g/dL Albumin 4.2 g/dL Globulin 2.4 g/dL Bilirubin, Total 0.2 mg/dL ALT (SGPT) 13 U/L AST (SGOT) 10 U/L Alkaline Phosphatase 67 IU/L WBC 3.4 10 3/uL RBC 4.34 10 6/uL HGB 11.3 g/dL HCT 36.4 % MCV 83.9 fL MCH 26.0 pg MCHC 31.0 g/dL RDW 17.7 % Platelet Count 191 10 3/cmm MPV 8.7 fL Neutrophils 2.56 10 3/uL Lymphocytes 0.3 10 3/uL Monocytes 0.4 10 3/uL Eosinophils 0.1 10 3/uL Basophils 0.0 10 3/uL Neutrophil % 75.9 % Lymphocyte % 9.8 % Monocyte % 10.7 % Eosinophil % 3.0 % Basophils % 0.3 % NRBC % 0 % Test performed on Mar 04, 2020 00:00 Manual Diff Cancelled via OM: Cancelled in Connected System Impression: 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 Perineural invasion seen, lymphovascular invasion also identified. Pathological stage stage T1b1, N0, MX (high risk) Started on Adjuvant combined chemoradiation therapy on February 26, 2020 with weekly cisplatin Anxiety disorder Plan: Discussed with patient regarding her labs white blood count 3.4 hemoglobin 11.7 hematocrit 36.3 platelets 179,000 ANC 2840 CMP within normal limits Clinically, patient is doing reasonably well, with no new signs symptoms tolerating combined chemoradiation with weekly cisplatin well, will proceed with next weekly dose of cisplatin today as patient will conclude her radiation therapy tomorrow morning with that she will complete her adjuvant chemoradiation. I will see her back in 2 weeks with CBC CMP. As for generalized weakness and fatigue is concerned probably due to combined chemoradiation or pain medication, patient was advised to maintain good hydration. Signed By: Kaylyn Berger M.D. <<Signature on File>>
[2020-04-09] MEDS: palonosetron 0.25 mg/5 mL SDV IV (14:19)
[2020-04-09] MEDS: potassium chloride ER 10 mEq Tablet 40 MEQ PO (15:50)
[2020-04-09] MEDS: FUROsemide 10 mg/mL SDV 2mL 20 MG IV (15:50)
[2020-04-09] MEDS: sodium chloride 0.9% 500 ML 999 ML IV (15:52)
== END 2020-05-02 23:59 | disposition home or self-care (01) ==
LOC: ONCMED 05:41
PROVIDERS: Absent Provider Radiology Radiation Oncology; Visit Provider Internal Medicine Hematology & Oncology
DX: Z51.0 Encounter for antineoplastic radiation therapy (principal); C53.9 Malignant neoplasm of cervix uteri, unspecified; R30.0 Dysuria; F41.9 Anxiety disorder, unspecified; R53.1 Weakness; R53.83 Other fatigue; Z90.710 Acquired absence of both cervix and uterus; Z90.722 Acquired absence of ovaries, bilateral; Z79.899 Other long term (current) drug therapy
CPT/HCPCS: 77336; 77386; 80053; 81001; 85025; 96361; 96366; 96367; 96375; 96413; 99214; J1100; J1453; J1940; J2469; J3475; J3480; J7030; J7040; J7050; J9060

== ENCOUNTER 2020-05-13 05:23 | Outpatient (RCR) | payer MEDICAID, SELFPAY ==
--- NOTE | 2020-05-10 11:55 | ONCRAD EPV_ITS ---
Radiation Oncology Follow-Up Note Patient Name: Ashleigh Mitchell Date of : 1985 Date of Service: 05/10/2020 Attending Physician: Steve Cabrera M.D. Ashleigh Mitchell returned to my office this morning for a routinely scheduled follow-up appointment. 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 She received weekly cisplatin during radiotherapy. Radiotherapy was administered between the dates of February 26, 2020 through April 10, 2020. A prescribed dose of 50.4 Gy was delivered in 28 fractions encompassing 44 elapsed days. Ms. Mitchell returned for a routine post radiotherapy follow-up. She has no residual adverse effects from radiotherapy. However, she complained of excessive hot flashes. I will prescribe Effexor ER (initially 37.5 mg) for her vasomotor symptoms. She will continue follow-up as scheduled with Kaylyn Berger M.D. Signed by: Dr. Steve Cabrera 05/10/2020 11:53:38 AM
[2020-05-13 14:27] LABS: Basophils % 0.5 %; Eosinophils # 0.1 10^3/uL (0.0-0.8); Eosinophils % 1.4 %; Hematocrit 37.1 % (37.0-47.0); Lymphocytes # 0.5 10^3/uL (0.8-4.8); Lymphocytes % 11.2 %; Mean Corpuscular HGB Conc 32.3 g/dL (30.0-36.0); Mean Corpuscular Hemoglobin 27.9 pg (28.0-34.0); Mean Corpuscular Volume 86.3 fL (81-99); Mean Platelet Volume 8.8 fL (7.4-10.4); Monocytes # 0.5 10^3/uL (0.2-0.9); Monocytes % 10.7 %; Neutrophils # 3.19 10^3/uL (1.8-7.7); Neutrophils % 75.7 %; Nucleated Red Blood Cells % 0 %; Platelet Count 269 10^3/cmm (130-400); Red Cell Distribution Width 19.8 % (12.1-15.1); White Blood Count 4.2 10^3/uL (4.0-10.0)
[2020-05-13 15:01] LABS: Alanine Aminotransferase 27 U/L (0-33); Albumin Level 4.2 g/dL (3.5-5.2); Alkaline Phosphatase 88 IU/L (35-105); Aspartate Amino Transferase 19 U/L (0-32); Blood Urea Nitrogen 15 mg/dL (6-20); Calcium 9.2 mg/dL (8.5-10.5); Carbon Dioxide 29 mmol/L (22-29); Chloride 102 mmol/L (98-107); Glomerular Filtration Rate 63.5 mL/min (90-130); Glucose 85 mg/dL (65-115); Osmolality Calculated 288 mOsm/kg (285-295); Sodium 139 mmol/L (136-145); Total Bilirubin 0.2 mg/dL (0.15-1.2); Total Protein 7.2 g/dL (6.6-8.7)
--- NOTE | 2020-05-13 16:39 | ONC FU_ITS ---
Dr. Berger follow up note Patient: Ashleigh Mitchell Unit #: [id number]: 1985 Dicatated By: Kaylyn Berger M.D.Date of Visit:May 13, 2020 Onc Med Follow-up/Prog Note History of Present Illness: Ms. Mitchell is a 34-year-old female who was found to have abnormal Pap smear in August 2019. She underwent conization by Dr. Wiseman which confirmed invasive cervical cancer. Ms Mitchell was referred to Dr. Ellison in [place]. There she underwent CT scan of chest abdomen pelvis on November 08, 2019 which showed a solitary 2 mm fissural nodule in the left lung; 9 mm arterial phase hyperenhancing lesion in the liver lateral hepatic segment. No abnormality in the abdomen and pelvis. Subsequently on December 12, 2019, she underwent radical total abdominal hysterectomy, bilateral salpingectomy, bilateral ovarian transposition and omental J flap to isolate small bowel from the pelvis. 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 Ms Mitchell says she has history of abnormal Pap smear but was noncompliant as far as follow-up. She has history of anxiety and restlessness as well family history. She reports she had a paternal aunt who had cervical cancer. Ms Mitchell was referred to [facility] for consideration of concurrent therapy. She started on adjuvant combined chemoradiation on February 26, 2020 with weekly cisplatin. And completed on April 10, 2020 CT of the chest without contrast from March 18, 2020. It indicates right hilar mass and/or lymphadenopathy somewhat smaller than noted on previous study. Decreased right pleural effusion. Small left pleural effusion. Bilateral pulmonary nodules unchanged. Left hilar lymphadenopathy. Residual infiltrates in the right upper and lower lobes and also the left upper lobes. Metastatic lesions are noted in the liver. Nodularity are also noted in the retrocrural fat as well as along the posterior right perarenal fat. Areas of bony sclerosis noted in thoracic and lumbar vertebrae as well as the sternum may be indicating bone metastasis and this is a change since prior study. Came for follow-up, denies any specific complaints, no fever chills, no nausea or vomiting, no diarrhea or constipation, no vaginal bleeding, no vaginal discharge, no pelvic pain. Patient smoking marijuana activity. Patient has completed combined chemoradiation therapy on April 10, 2020 Medications: ALPRAZolam 1 Tablet (of 0.5 mg) Tablet Oral t.i.d., Omeprazole 1 Tablet (of 20 mg) Tablet, enteric coated Oral daily, oxyCODONE-Acetaminophen 1 - 2 Tablet (of 10-325 mg) Oral q 4 hours PRN, Prochlorperazine Maleate 1 Tablet (of 10 mg) Oral q 4 hours PRN Allergies: No Known Allergies. Review of Systems: Review of Systems is not available for this patient. Vital Signs: Performed on May 13, 2020 15:44 Height - 70.50 in Weight - 226.8 lbs (HIGH) BSA - 2.21 sq.m BMI - 32.08 (HIGH) Temperature - 97.8 F (LOW) Pulse - 90 /min Respiration - 18 /min BP - 144/82 mm(hg) (HIGH) O2 Sat - 96 % Pain - 0 Performance Status: 0 - Fully active, able to carry on all predisease activities without restrictions. (ECOG) Physical Examination: ENMT - No mouth sores, no thrush, no jaundice, Respiratory - Lungs are clear to auscultation, Cardiovascular - Regular rate and rhythm of heart, Abdomen - Soft, bowel sounds present, Extremities - No visible edema or rash. Lab/Imaging: Test performed on Apr 09, 2020 11:25 Sodium 139 mmol/L Potassium 4.3 mmol/L Chloride 105 mmol/L CO2 24 mmol/L Anion Gap 14.3 BUN 9 mg/dL Creatinine 0.7 mg/dL Cr Clearance (Est) 176.6100 mL/min eGFR 95.8 mL/min Glucose 103 mg/dL Osmolality - Calculated 287 mOsm/kg Calcium 9.1 mg/dL Protein, Total 6.8 g/dL Albumin 4.3 g/dL Globulin 2.5 g/dL Bilirubin, Total 0.2 mg/dL ALT (SGPT) 15 U/L AST (SGOT) 14 U/L Alkaline Phosphatase 70 IU/L WBC 3.4 10 3/uL RBC 4.39 10 6/uL HGB 11.7 g/dL HCT 36.3 % MCV 82.7 fL MCH 26.7 pg MCHC 32.2 g/dL RDW 18.4 % Platelet Count 179 10 3/cmm MPV 9.2 fL Neutrophils 2.84 10 3/uL Lymphocytes 0.3 10 3/uL Monocytes 0.2 10 3/uL Eosinophils 0.1 10 3/uL Basophils 0.0 10 3/uL Neutrophil % 82.8 % Lymphocyte % 7.9 % Monocyte % 6.4 % Eosinophil % 1.7 % Basophils % 0.6 % NRBC % 0 % Test performed on Apr 01, 2020 12:18 TSH 0.55 uIU/mL Test performed on Mar 04, 2020 00:00 Manual Diff Cancelled via OM: Cancelled in Connected System Impression: 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 Perineural invasion seen, lymphovascular invasion also identified. Pathological stage stage T1b1, N0, MX (high risk) Started on Adjuvant combined chemoradiation therapy on February 26, 2020 with weekly cisplatin And completed on April 10, 2020 Anxiety disorder Plan: Discussed with patient regarding her labs white blood count 4.2 hemoglobin 12 hematocrit 37.1 platelets 269,000 CMP within normal limits Clinically, patient is doing well with no new signs symptoms history of recurrence of disease, patient has completed combined chemoradiation with weekly cisplatin on April 10, 2020, follow-up labs shows normalization of mild anemia and leukopenia and now CBC and CMP is within normal range. Overall patient has recovered well from combined chemoradiation therapy too. , Will continue to monitor along with TRANSM[employer] TE[employer] Dr. Wiseman. Patient will return to clinic in 3 months with CBC CMP Signed By: Kaylyn Berger M.D. <<Signature on File>>
== END 2020-06-02 23:59 | disposition home or self-care (01) ==
LOC: ONCMED 05:23
PROVIDERS: Absent Provider Radiology Radiation Oncology; Visit Provider Internal Medicine Hematology & Oncology
DX: Z08 Encounter for follow-up examination after completed treatment for malignant neoplasm (principal); Z85.41 Personal history of malignant neoplasm of cervix uteri; F41.9 Anxiety disorder, unspecified; Z92.3 Personal history of irradiation; Z92.21 Personal history of antineoplastic chemotherapy
CPT/HCPCS: 36415; 80053; 85025; G0463

== ENCOUNTER 2023-08-05 11:42 | Outpatient (CLI) | payer MEDICAID, SELFPAY ==
--- NOTE | 2023-08-05 11:56 | CT_ITS ---
WS: [id number] CT CHEST, ABDOMEN, AND PELVIS TECHNIQUE: Contrast-enhanced CT of the chest, abdomen, and pelvis with coronal and sagittal reformatt ed images. CLINICAL INFORMATION: MALIGNANT NEOPLASM OF CERVIX, UTERI, CHANGE IN BOWEL HABIT COMPARISON: Outside CT 11/08/2019 images only DLP: 838.[address] scans at [facility] use at least one of these dose optimization techniques: automated e xposure control; mA and/or kV adjustment per patient size (includes targeted exams where dose is matc hed to clinical indication); or iterative reconstruction. CT CHEST: Lungs are well aerated. No acute pulmonary infiltrates. No focal pneumonia or pleural fluid. No evide nce of metastatic disease in the chest. No suspicious pulmonary parenchymal abnormalities. Normal caliber thoracic aorta. Proximal main pulmonary arteries are normal. No mediastinal or hilar l ymphadenopathy. No axillary lymphadenopathy. Mild thoracic curve. CT ABDOMEN AND PELVIS: Prior hysterectomy. Normal liver. Normal portal vein and splenic vein. Normal gallbladder. Normal spl een. Normal GE junction. Adrenal glands are normal. No hydronephrosis. Complex enhancing lesion in th e RIGHT kidney is new since 11/08/2019 measuring 1.5 cm. Recommend further evaluation with ultrasound a nd/or MRI without and with gadolinium enhancement. Normal LEFT renal parenchymal enhancement. Normal caliber abdominal aorta. No evidence of large or small bowel obstruction. Normal sigmoid colon . No abdominal lymphadenopathy. No pelvic lymphadenopathy. No inguinal lymphadenopathy. Disc space na rrowing lower lumbar spine L4-5. L5 appears partially sacralized. IMPRESSION: 1. No evidence of metastatic disease in the chest. 2. Prior hysterectomy. 3. Complex enhancing lesion in the mid posterior medial RIGHT kidney measuring 1.5 cm. This is indet erminate and recommend further evaluation with ultrasound and/or MRI without and with gadolinium enha ncement. 4. No adenopathy in the abdomen or pelvis. 5. No enhancing lesions in the liver. 6. Normal sigmoid colon. No evidence of small or large bowel obstruction. 7. No other acute findings.
[2023-08-05] MEDS: iohexol 350 mg/mL 500 mL Btl (per mL) IV (12:10)
== END 2023-08-05 11:43 | disposition home or self-care (01) ==
LOC: RAD 11:43
PROVIDERS: PCP Nurse Practitioner Family; Visit Provider Nurse Practitioner Family
DX: C53.9 Malignant neoplasm of cervix uteri, unspecified (principal); R19.4 Change in bowel habit
CPT/HCPCS: 71260; 74177; Q9967

== ENCOUNTER 2023-08-20 13:58 | Outpatient (CLI) | payer MEDICAID, SELFPAY ==
--- NOTE | 2023-08-20 14:05 | US_ITS ---
WS: [id number] RENAL ULTRASOUND HISTORY: OTHER SPECIFIED DISORDERS OF KIDNEY URETER COMPARISON: CT 08/05/2023 TECHNIQUE: 2-D and color Doppler imaging of the kidney submitted. Right kidney: 10.2 cm x 5.6 cm x 4.1 cm. Cortex: 1.3 cm Normal size kidney. The new mass described in the posterior medial RIGHT kidney is not evident by ult rasound. This is probably due to the position of the mass and its small size. No hydronephrosis. Left kidney: 9.5 cm x 3.5 cm x 4.8 cm. Cortex: 1.1 cm Normal echogenicity with no hydronephrosis or mass. Aorta: Normal. Urinary Bladder: Normal distention. IMPRESSION: 1. Normal renal ultrasound. 2. Previously described new renal mass in the RIGHT kidney is not visualized by ultrasound. Nonvisua lization is due to the size and position of the lesion. MRI kidneys with and without contrast would p robably be the most helpful exam at this time to proceed .
== END 2023-08-20 13:59 | disposition home or self-care (01) ==
LOC: RAD 13:59
PROVIDERS: PCP Nurse Practitioner Family; Visit Provider Nurse Practitioner Family
DX: N28.89 Other specified disorders of kidney and ureter (principal)
CPT/HCPCS: 76770